=== PATIENT | female | born 1950 | race Caucasian/White ===

== ENCOUNTER 2017-07-01 19:23 | Inpatient (IN) | payer OTHER ==
[~2017-07-01] VITALS: Ht 160 cm; Wt 108.9 kg
[~2017-07-01 19:23] MED LIST: ALBUTEROL2.5 MG/32; ATIVAN0.5 MG PO; BACTRIM DS TAB1 EACH PO; CYMBALTA PO; CYMBALTA60 MG PO; FLAGYL500 MG PO; FLONASE16 GM; LEXAPRO 10 MG T10 MG; NEURONTIN 300M300 M2 PO; XANAX 0.25 MG0.25 MG; ZPAK PO
[2017-07-01 19:39] LABS: URINE BILIRUBIN NEGATIVE (Negative); URINE BLOOD TRACE (Negative); URINE CLARITY CLEAR; URINE COLOR YELLOW; URINE GLUCOSE-RANDOM* NEGATIVE (Negative); URINE KETONES NEGATIVE (Negative); URINE LEUKOCYTES-REFLEX NEGATIVE (Negative); URINE NITRITE-REFLEX NEGATIVE (Negative); URINE PROTEIN (DIPSTICK) TRACE (Negative); URINE SPECIFIC GRAVITY 1.015 (1.005-1.035); URINE UROBILINOGEN 0.2 E.U./dl (0.2-1.0)
[2017-07-01 19:55] VITALS: BP 142/87
[2017-07-01] MEDS ORDERED: METFORMIN HCL500 MG PO (20:02)
[2017-07-01] MEDS ORDERED: CO Q-10100 MG PO (20:02)
[2017-07-01] MEDS ORDERED: COLON HEALTH PO (20:03)
[2017-07-01] MEDS ORDERED: LIPITOR 20 MG T20 M1 PO (20:04)
[2017-07-01] MEDS ORDERED: CBD PO (20:05)
[2017-07-01] MEDS ORDERED: [UNRECOGNIZED DRUG - REMARK] PO (20:06)
[2017-07-01] MEDS ORDERED: OMEPRAZOLE40 MG PO (20:06)
[2017-07-01 20:16] LABS: ABSOLUTE NEUTROPHILS 6.8 thou/uL (1.4-8.2); BASOPHILS 0.8 % (0.0-2.0); EOSINOPHILS 1.4 % (0.0-3.0); HEMATOCRIT 39.3 % (37.0-47.0); HEMOGLOBIN 13.7 gm/dL (12.0-15.0); LYMPHOCYTES 19.6 % (24.0-44.0); MCH 29.6 pg (26.0-34.0); MCHC 34.9 g/dL (28.0-37.0); MCV 84.8 fL (80.0-100.0); MONOCYTES 8.5 % (1.0-8.0); PLATELET COUNT 329 thou/uL (150-400); POLYS 69.7 % (36.0-66.0); RBC 4.64 mil/uL (4.20-5.00); RDW 14.6 % (10.5-14.5); WBC 9.7 thou/uL (4.0-11.0)
[2017-07-01 20:24] LABS: CALCIUM 8.9 mg/dL (8.5-10.1); CREATININE 0.7 mg/dL (0.6-1.0); POTASSIUM 3.3 mmol/L (3.5-5.1)
[2017-07-01 20:30] LABS: ALBUMIN 3.5 g/dL (3.4-5.0); TOTAL BILIRUBIN 0.7 mg/dL (<0.1-1.0); TOTAL PROTEIN 7.7 g/dL (6.4-8.2)
[2017-07-02 00:20] VITALS: BP 127/63
[2017-07-02 00:44] VITALS: BP 137/70
[2017-07-02 01:00] VITALS: BP 131/61
[2017-07-02 06:37] LABS: CALCIUM 8.5 mg/dL (8.5-10.1); CREATININE 0.7 mg/dL (0.6-1.0); MAGNESIUM 2.7 mg/dL (1.8-2.4); POTASSIUM 3.3 mmol/L (3.5-5.1)
[2017-07-02 07:49] VITALS: BP 127/73
[2017-07-02 15:15] VITALS: BP 159/96
[2017-07-02 16:44] LABS: PROTIME 9.3 Seconds (9.3-11.4)
[2017-07-02 17:06] LABS: % SATURATION 21 % (20-39); IRON 49 ug/dL (50-170); TIBC 239 ug/dL (250-450)
[2017-07-02 20:00] VITALS: BP 149/77
[2017-07-03 01:06] LABS: IgG 635 mg/dL (700-1600)
[2017-07-03 04:00] VITALS: BP 141/70
[2017-07-03 07:56] VITALS: BP 134/76
[2017-07-03 11:47] LABS: ALBUMIN 3.2 g/dL (3.4-5.0); DIRECT BILIRUBIN 0.2 mg/dL (<0.1-0.3); TOTAL BILIRUBIN 0.4 mg/dL (<0.1-1.0); TOTAL PROTEIN 6.3 g/dL (6.4-8.2)
[2017-07-03 15:06] LABS: CERULOPLASMIN 30.7 mg/dL (19.0-39.0)
[2017-07-03 16:41] VITALS: BP 131/62
[2017-07-03 18:23] VITALS: BP 131/62
[2017-07-04 19:07] LABS: HAV IgM AB (ANTI-HAV IgM) Negative (Negative); HEPATITIS B SURFACE AG Negative (Negative); HEPATITIS C VIRUS AB <0.1 (0.0-0.9)
[2017-07-05 09:13] LABS: ANA INTERPRETATION Negative (Negative)
== END 2017-07-03 18:55 | disposition home or self-care (01) | DRG 445 ==
LOC: ER 19:23 → EROBS 21:32 → 4N 21:32 → ENTRNSPT 07-03 18:53 → 4N 07-03 18:55
PROVIDERS: Nurse Practitioner; Nurse Practitioner Acute Care; Physician Assistant
DX: K80.80 Other cholelithiasis without obstruction (principal); Z68.41 Body mass index [BMI] 40.0-44.9, adult; K59.09 Other constipation; F43.10 Post-traumatic stress disorder, unspecified; E78.00 Pure hypercholesterolemia, unspecified; E87.6 Hypokalemia; F41.9 Anxiety disorder, unspecified; F32.9 Major depressive disorder, single episode, unspecified; E11.9 Type 2 diabetes mellitus without complications; E66.9 Obesity, unspecified; Z79.899 Other long term (current) drug therapy; Z79.84 Long term (current) use of oral hypoglycemic drugs; Z85.3 Personal history of malignant neoplasm of breast; Z90.13 Acquired absence of bilateral breasts and nipples; Z90.710 Acquired absence of both cervix and uterus; Z87.891 Personal history of nicotine dependence; Z88.5 Allergy status to narcotic agent; Z88.8 Allergy status to other drugs, medicaments and biological substances
CPT/HCPCS: 10091

== ENCOUNTER 2017-11-28 15:58 | Inpatient (IN) | payer OTHER ==
[~2017-11-28] VITALS: Ht 162.6 cm; Wt 113.4 kg
--- NOTE | ~2017-11-28 | PATH ---
[facility] [place] [address] PATHOLOGY RPT PROCEDURE Name: PALMIRA ROCK Room #: 422-P [facility] IN M.R.#: [id number] Admission: 11/28/17 Date of : 54 Discharge: 12/03/17 Report #: [id number] Path Case #: [id number] [facility] Accession Number: [id number] . 01 Material submitted: . GALLBLADDER . 01 Clinical history: . Acute cholecystitis . 02 Diagnosis: Gallbladder "gallbladder cholecystectomy": - Moderate subacute and chronic cholecystitis with cholelithiasis. (SHA:[facility] 12/04/2017) QTP/12/04/2017 . 02 Electronically signed: . Pito Beltrán MD, Pathologist NPI- [id number] . 01 Gross description: . The specimen is received in formalin, labeled "Palmira Rock, gallbladder" and consists of a previously opened gallbladder measuring 8.0 cm in length and up to 3.0 cm in diameter. Present within the container is a single black calculus measuring 0.3 x 0.3 cm. The serosa is ireland-franks, smooth, and dusky. The mucosa is franks-brown with yellow highlights and a wall thickness averaging 0.2 cm. No masses or lesions are identified. Shagger sections are submitted in A1. (SDY; 12/03/2017) SYU/SYU . 02 Pathologist provided ICD-10: K80.10 . 02 CPT . 097152 Specimen Comment: A courtesy copy of this report has been sent to Specimen Comment: [phone], , . Specimen Comment: Report sent to ,DR CORDOVA / DR ROWAN Specimen Comment: A duplicate report has been generated due to demographic updates. Performed at: [address], [place] [id number] MD Bryon Oliveira MD Phone: [phone] Performed at: [address] [address] PATHOLOGY RPT PROCEDURE Name: PALMIRA ROCK Room #: 422-P DIS IN M.R.#: [id number] Admission: 11/28/17 Date of : 54 Discharge: 12/03/17 Report #: [id number] Path Case #: [id number] [address], [place], [place] [id number] MD Anahy Scott MD Phone: [phone]
--- NOTE | ~2017-11-28 | P ---
[facility] [place] [address] PROCEDURE REPORT Name: PALMIRA GAR Room #: 422-P [facility] IN M.R.#: [id number] Admission: 11/28/17 Attend Phys: Ceferino Ac MD Discharge: 12/03/17 Date of : 54 Report #: [id number] THIS REPORT FOR: //name// CC: Sanford Ewing DATE OF SERVICE: 11/30/2017 PROCEDURE PERFORMED: ERCP. HISTORY OF PRESENT ILLNESS: The patient is a 67-year-old female with abdominal pain, admitted on the . The pain is primarily midepigastric. She was noted to have elevated liver function test. Ultrasound of the abdomen showed gallbladder wall is abnormally thickened, there is intramural gallbladder wall edema suspicious for cholecystitis. An MRCP was then performed, which showed questionable 5 mm filling defect in the distal common bile duct suggestive of a possible common bile duct stone. No intra or extrahepatic biliary ductal dilation, mild prominence of gallbladder wall thickness. The patient's labs yesterday showed total bilirubin was 2.0, AST 315, ALT 466 and alkaline phosphatase 344. Plan is for ERCP. DESCRIPTION OF PROCEDURE: The risks and benefits of the procedure were explained to the patient. Those risks including but not limited to bleeding, perforation and the risk of sedation as well as the potential for posterior or superior pancreatitis. She understood these risks and gave informed consent. The procedure was performed under general anesthesia in Interventional Radiology suite. The patient had already received IV antibiotics earlier today. She was given 50 mg indomethacin rectal suppository prior to the procedure as well. Next, using a standard Olympus side-viewing ERCP scope, the scope was placed in the patient's mouth and advanced under direct vision through the esophagus, stomach and into the second portion of the duodenum. The major papilla was identified, which was normal, however, has right on the edge of a diverticulum. Next, using a Jarett-Cook 0.025 dome-tipped sphincterotome catheter, the common bile duct was attempted to be cannulated. I tried multiple attempts without success. The pancreatic duct was cannulated several times, which was normal in appearance. At this point, I tried a 0.021 catheter as well. Again, multiple attempts were made. We tried multiple different angles and repositioning the patient. Despite this, I think due to the diverticulum, it made it difficult to cannulate the common bile duct, we were not successful at this point. The catheter and the scope was then withdrawn and the procedure terminated. The patient tolerated the procedure well. IMPRESSION: 1. Unsuccessful cannulation of the common bile duct. [address] [address] PROCEDURE REPORT Name: CONGPALMIRA SUE Room #: 422-P [facility] IN M.R.#: [id number] Admission: 11/28/17 Attend Phys: Ceferino Ac MD Discharge: 12/03/17 Date of : 54 Report #: [id number] 2. Pancreatic duct was normal. 3. Duodenal diverticulum. RECOMMENDATIONS: 1. Observe the patient post-procedure. 2. The patient is scheduled for laparoscopic cholecystectomy tomorrow. We will await intraoperative cholangiogram results at that time. Thank you for allowing me to participate in her care. <ELECTRONICALLY SIGNED> By: Suhail Galeana MD 12/05/17 0956 1717 0405 Suhail Galeana MD /nt
--- NOTE | ~2017-11-28 | EKG ---
[address] [address] ELECTROCARDIOGRAM REPORT Name: PALMIRA GAR Room #: 422-P ADM IN M.R.#: [id number] Admission: 11/28/17 Attend Phys: Ceferino Ac MD Discharge: Date of : 54 Report #: [id number] THIS REPORT FOR: //name// 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 Painting: : 1950 Requested By: Kamryn Cheek Order Number: [id number] MD: Bertin Henley Measurements Intervals [place] Rate: 82 P: 51 AK: 166 QRS: 29 QRSD: 108 T: 39 QT: 386 QTc: 451 Interpretive Statements Sinus rhythm Nonspecific ST segment abnormality Compared to ECG 05/07/2013 10:39:04 No significant change was found Electronically Signed On 11-29-2017 8:13:48 CDT by Bertin Henley [email or web address] <ELECTRONICALLY SIGNED> By: Bertin Henley MD, [facility] 11/29/17 0813 1659 1659 Bertin Henley MD, [facility] /EPI
[~2017-11-28 15:58] MED LIST changes: +CBD PO; +CO Q-10100 MG PO; +COLON HEALTH PO; +LIPITOR 20 MG T20 M1 PO; +METFORMIN HCL500 MG PO; +OMEPRAZOLE40 MG PO; +[UNRECOGNIZED DRUG - REMARK] PO
[2017-11-28 16:14] VITALS: BP 163/62
[2017-11-28] MEDS ORDERED: NEURONTIN600 MG PO (16:24)
[2017-11-28 16:57] LABS: ABSOLUTE NEUTROPHILS 6.7 thou/uL (1.4-8.2); BASOPHILS 0.4 % (0.0-2.0); EOSINOPHILS 0.5 % (0.0-3.0); HEMATOCRIT 38.5 % (37.0-47.0); HEMOGLOBIN 13.3 gm/dL (12.0-15.0); LYMPHOCYTES 11.3 % (24.0-44.0); MCH 29.1 pg (26.0-34.0); MCHC 34.4 g/dL (28.0-37.0); MCV 84.6 fL (80.0-100.0); MONOCYTES 8.3 % (1.0-8.0); PLATELET COUNT 289 thou/uL (150-400); POLYS 79.5 % (36.0-66.0); RBC 4.55 mil/uL (4.20-5.00); RDW 14.2 % (10.5-14.5); WBC 8.4 thou/uL (4.0-11.0)
[2017-11-28 16:59] LABS: URINE BILIRUBIN NEGATIVE (Negative); URINE BLOOD TRACE (Negative); URINE CLARITY CLEAR; URINE COLOR YELLOW; URINE GLUCOSE-RANDOM* NEGATIVE (Negative); URINE KETONES NEGATIVE (Negative); URINE LEUKOCYTES NEGATIVE (Negative); URINE NITRITE NEGATIVE (Negative); URINE PROTEIN (DIPSTICK) NEGATIVE (Negative); URINE SPECIFIC GRAVITY 1.015 (1.005-1.035)
[2017-11-28 17:01] LABS: ANION GAP 11 mmol/L (7-16); BUN 15 mg/dL (7-18); CALCIUM 8.9 mg/dL (8.5-10.1); CHLORIDE 101 mmol/L (98-107); CO2 25 mmol/L (21-32); CREATININE 0.8 mg/dL (0.6-1.0); GLUCOSE 173 mg/dL (74-106); POTASSIUM 3.9 mmol/L (3.5-5.1); SODIUM 137 mmol/L (136-145)
[2017-11-28 17:13] LABS: ALBUMIN 3.2 g/dL (3.4-5.0); APTT 26.4 Seconds (24.5-32.8); LIPASE 106 U/L (73-393); SGOT 720 U/L (15-37); SGPT 515 U/L (30-65); TOTAL BILIRUBIN 1.4 mg/dL (<0.1-1.0); TOTAL PROTEIN 7.5 g/dL (6.4-8.2); TROPONIN-I <0.06 ng/mL (<0.06)
[2017-11-28 18:24] VITALS: BP 161/85
[2017-11-28 18:57] LABS: ALBUMIN 3.4 g/dL (3.4-5.0); TOTAL PROTEIN 6.9 g/dL (6.4-8.2)
[2017-11-28 19:00] VITALS: BP 134/69
[2017-11-28 19:22] LABS: TSH 0.279 uIU/mL (0.358-3.740)
[2017-11-28 19:56] VITALS: BP 134/69
[2017-11-29 03:45] VITALS: BP 144/67
[2017-11-29 05:16] LABS: HEMATOCRIT 38.4 % (37.0-47.0); MCH 28.8 pg (26.0-34.0); MCHC 33.8 g/dL (28.0-37.0); MCV 85.1 fL (80.0-100.0); RBC 4.52 mil/uL (4.20-5.00); RDW 14.2 % (10.5-14.5); WBC 5.3 thou/uL (4.0-11.0)
[2017-11-29 05:27] LABS: DIRECT BILIRUBIN 1.4 mg/dL (<0.1-0.3); TOTAL BILIRUBIN 2.1 mg/dL (<0.1-1.0); TOTAL PROTEIN 6.9 g/dL (6.4-8.2)
[2017-11-29 07:16] VITALS: BP 151/79
[2017-11-29 13:20] VITALS: BP 146/66
[2017-11-29 16:12] VITALS: BP 152/93
[2017-11-29 18:50] LABS: CALCIUM 8.5 mg/dL (8.5-10.1); CREATININE 0.9 mg/dL (0.6-1.0); POTASSIUM 3.6 mmol/L (3.5-5.1); TOTAL PROTEIN 6.9 g/dL (6.4-8.2)
[2017-11-29 19:35] VITALS: BP 142/69
[2017-11-30 02:07] VITALS: BP 156/96
[2017-11-30 04:22] VITALS: BP 142/63
[2017-11-30 06:00] LABS: HEMATOCRIT 35.7 % (37.0-47.0); HEMOGLOBIN 12.1 gm/dL (12.0-15.0); MCH 29.1 pg (26.0-34.0); MCHC 33.9 g/dL (28.0-37.0); MCV 85.6 fL (80.0-100.0); RBC 4.17 mil/uL (4.20-5.00); RDW 14.5 % (10.5-14.5); WBC 6.2 thou/uL (4.0-11.0)
[2017-11-30 07:52] VITALS: BP 152/71
[2017-11-30 18:58] LABS: CALCIUM 8.3 mg/dL (8.5-10.1); CREATININE 0.7 mg/dL (0.6-1.0); POTASSIUM 3.4 mmol/L (3.5-5.1); TOTAL BILIRUBIN 1.9 mg/dL (<0.1-1.0); TOTAL PROTEIN 7.3 g/dL (6.4-8.2)
[2017-11-30 19:54] VITALS: BP 151/82
[2017-12-01 05:53] LABS: HEMATOCRIT 38.7 % (37.0-47.0); HEMOGLOBIN 13.3 gm/dL (12.0-15.0); MCH 29.5 pg (26.0-34.0); MCHC 34.5 g/dL (28.0-37.0); MCV 85.6 fL (80.0-100.0); RBC 4.52 mil/uL (4.20-5.00); RDW 14.3 % (10.5-14.5); WBC 9.6 thou/uL (4.0-11.0)
[2017-12-01 09:11] VITALS: BP 157/71
[2017-12-01 12:54] LABS: DIRECT BILIRUBIN 0.5 mg/dL (<0.1-0.3); TOTAL BILIRUBIN 0.8 mg/dL (<0.1-1.0); TOTAL PROTEIN 7.1 g/dL (6.4-8.2)
[2017-12-01 17:41] VITALS: BP 157/93
[2017-12-01 19:50] VITALS: BP 155/86
[2017-12-02 04:40] VITALS: BP 169/61
[2017-12-02 05:15] LABS: HEMATOCRIT 38.9 % (37.0-47.0); MCH 28.3 pg (26.0-34.0); MCHC 33.3 g/dL (28.0-37.0); RBC 4.58 mil/uL (4.20-5.00); RDW 14.5 % (10.5-14.5); WBC 15.5 thou/uL (4.0-11.0)
[2017-12-02 05:38] LABS: ALBUMIN 2.9 g/dL (3.4-5.0); DIRECT BILIRUBIN 0.2 mg/dL (<0.1-0.3); MAGNESIUM 1.8 mg/dL (1.8-2.4); TOTAL BILIRUBIN 0.8 mg/dL (<0.1-1.0); TOTAL PROTEIN 6.9 g/dL (6.4-8.2)
[2017-12-02 19:59] VITALS: BP 108/55
[2017-12-03 04:09] VITALS: BP 146/81
[2017-12-03 07:23] VITALS: BP 127/66
[2017-12-03 14:26] VITALS: BP 127/66
== END 2017-12-03 16:00 | disposition home or self-care (01) | DRG 417 ==
LOC: ER 15:58 → 4E 18:22 → EROBS 18:22 → 4E 19:36 → ENTRNSPT 12-03 15:49 → EDTRNSPTSTS 12-03 15:52 → 4E 12-03 16:00
PROVIDERS: Internal Medicine; Physician Assistant; Surgery
DX: K80.01 Calculus of gallbladder with acute cholecystitis with obstruction (principal); E43 Unspecified severe protein-calorie malnutrition; E78.00 Pure hypercholesterolemia, unspecified; R74.0 Nonspecific elevation of levels of transaminase and lactic acid dehydrogenase [LDH]; K57.10 Diverticulosis of small intestine without perforation or abscess without bleeding; E11.65 Type 2 diabetes mellitus with hyperglycemia; E78.5 Hyperlipidemia, unspecified; F32.9 Major depressive disorder, single episode, unspecified; K59.00 Constipation, unspecified; K21.9 Gastro-esophageal reflux disease without esophagitis; Z79.899 Other long term (current) drug therapy; Z90.13 Acquired absence of bilateral breasts and nipples; Z90.710 Acquired absence of both cervix and uterus; Z85.3 Personal history of malignant neoplasm of breast; Z88.6 Allergy status to analgesic agent; Z88.8 Allergy status to other drugs, medicaments and biological substances; Z83.6 Family history of other diseases of the respiratory system; Z83.79 Family history of other diseases of the digestive system; Z87.891 Personal history of nicotine dependence
CPT/HCPCS: 10183; 50101; 50249; 50411; 50555; 50558; 50962; 51489; 51975; 52265; 53307; 53310; 54022; 54118; 55245; 55317; 56462; 56525; 56526; 62110; 62900; 65130; 70005

== ENCOUNTER 2017-12-05 02:28 | Inpatient (IN) | payer OTHER ==
[~2017-12-05] VITALS: Ht 162.6 cm; Wt 121.3 kg
[~2017-12-05 02:28] MED LIST changes: +NEURONTIN600 MG PO
[2017-12-05 02:39] VITALS: BP 115/65
[2017-12-05 03:11] LABS: HEMATOCRIT 34.3 % (37.0-47.0); HEMOGLOBIN 11.4 gm/dL (12.0-15.0); MCH 28.2 pg (26.0-34.0); MCHC 33.3 g/dL (28.0-37.0); MCV 84.7 fL (80.0-100.0); PLATELET COUNT 351 thou/uL (150-400); RBC 4.05 mil/uL (4.20-5.00); RDW 14.7 % (10.5-14.5); WBC 19.2 thou/uL (4.0-11.0)
[2017-12-05 03:18] LABS: CALCIUM 8.2 mg/dL (8.5-10.1); CREATININE 0.8 mg/dL (0.6-1.0)
[2017-12-05 03:21] LABS: POTASSIUM 2.9 mmol/L (3.5-5.1)
[2017-12-05 03:24] LABS: ALBUMIN 2.2 g/dL (3.4-5.0); TOTAL BILIRUBIN 0.7 mg/dL (<0.1-1.0); TOTAL PROTEIN 6.7 g/dL (6.4-8.2)
[2017-12-05 03:32] LABS: ATYPICAL LYMPHS 1 %
[2017-12-05 04:26] LABS: URINE BILIRUBIN 1+ (Negative); URINE BLOOD TRACE (Negative); URINE CLARITY CLEAR; URINE COLOR YELLOW; URINE GLUCOSE-RANDOM* TRACE (Negative); URINE KETONES TRACE (Negative); URINE LEUKOCYTES-REFLEX NEGATIVE (Negative); URINE NITRITE-REFLEX NEGATIVE (Negative); URINE PROTEIN (DIPSTICK) 1+ (Negative); URINE SPECIFIC GRAVITY 1.025 (1.005-1.035)
[2017-12-05 04:30] LABS: ICTOTEST (BILI CONFIRMATORY) Positive (Negative)
[2017-12-05 04:42] LABS: HYALINE CASTS 0-3 Few /LPF (None Seen); MUCUS 0-3 Light strn/LPF (None Seen); SQUAMOUS 4-10 Moderate /LPF (0-3)
[2017-12-05 04:43] LABS: BACTERIA-REFLEX 1-9 Few /HPF (None Seen); CRYSTALS None Seen /LPF (None Seen); URINE RBC 0-2 Rare /HPF (0-2); URINE WBC-REFLEX 0-5 Rare /HPF (0-5)
[2017-12-05 06:04] VITALS: BP 139/70
[2017-12-05 06:29] VITALS: BP 129/50
[2017-12-05 07:46] VITALS: BP 147/74
[2017-12-05 11:53] LABS: CALCIUM 7.7 mg/dL (8.5-10.1); CREATININE 0.7 mg/dL (0.6-1.0)
[2017-12-05 16:25] VITALS: BP 134/62
[2017-12-05 19:55] VITALS: BP 133/59
[2017-12-06 04:36] VITALS: BP 148/64
[2017-12-06 07:35] LABS: ABSOLUTE NEUTROPHILS 14.2 thou/uL (1.4-8.2); BASOPHILS 0.2 % (0.0-2.0); EOSINOPHILS 1.4 % (0.0-3.0); HEMATOCRIT 30.9 % (37.0-47.0); HEMOGLOBIN 10.1 gm/dL (12.0-15.0); LYMPHOCYTES 10.5 % (24.0-44.0); MCH 28.1 pg (26.0-34.0); MCHC 32.6 g/dL (28.0-37.0); MCV 86.4 fL (80.0-100.0); MONOCYTES 9.9 % (1.0-8.0); PLATELET COUNT 344 thou/uL (150-400); RBC 3.58 mil/uL (4.20-5.00); RDW 14.7 % (10.5-14.5); WBC 18.2 thou/uL (4.0-11.0)
[2017-12-06 07:45] LABS: CALCIUM 7.6 mg/dL (8.5-10.1); CREATININE 0.6 mg/dL (0.6-1.0); MAGNESIUM 1.8 mg/dL (1.8-2.4); POTASSIUM 3.1 mmol/L (3.5-5.1)
[2017-12-06 07:53] LABS: DIRECT BILIRUBIN 0.4 mg/dL (<0.1-0.3); TOTAL BILIRUBIN 0.7 mg/dL (<0.1-1.0)
[2017-12-06 16:34] LABS: GLYCOHEMOGLOBIN (HGB A1C) 6.3 % (4.8-5.6)
[2017-12-06 16:44] VITALS: BP 132/48
[2017-12-06 19:26] VITALS: BP 144/44
[2017-12-07 04:20] VITALS: BP 124/59
[2017-12-07 06:16] LABS: HEMATOCRIT 31.2 % (37.0-47.0); HEMOGLOBIN 10.6 gm/dL (12.0-15.0); MCH 28.9 pg (26.0-34.0); MCHC 33.8 g/dL (28.0-37.0); MCV 85.5 fL (80.0-100.0); PLATELET COUNT 331 thou/uL (150-400); RBC 3.65 mil/uL (4.20-5.00); RDW 15.1 % (10.5-14.5); WBC 16.4 thou/uL (4.0-11.0)
[2017-12-07 06:36] LABS: CALCIUM 7.7 mg/dL (8.5-10.1); CREATININE 0.6 mg/dL (0.6-1.0)
[2017-12-07 06:46] LABS: ALBUMIN 1.8 g/dL (3.4-5.0); DIRECT BILIRUBIN 0.2 mg/dL (<0.1-0.3); TOTAL BILIRUBIN 0.6 mg/dL (<0.1-1.0); TOTAL PROTEIN 5.9 g/dL (6.4-8.2)
[2017-12-07 07:22] LABS: POTASSIUM 2.8 mmol/L (3.5-5.1)
[2017-12-07 07:52] VITALS: BP 155/56
[2017-12-07 08:17] LABS: ABSOLUTE NEUTROPHILS 13.1 thou/uL (1.4-8.2); PLATELET ESTIMATE NORMAL
[2017-12-07 20:30] VITALS: BP 125/49
[2017-12-08 04:30] VITALS: BP 146/56
[2017-12-08 08:24] VITALS: BP 128/59
[2017-12-08 15:18] VITALS: BP 128/59
== END 2017-12-08 18:45 | disposition home or self-care (01) | DRG 438 ==
LOC: ER 02:28 → 4E 05:51 → EROBS 05:51 → 4E 06:29
PROVIDERS: Emergency Medicine; Hospitalist; Internal Medicine Gastroenterology; Nurse Practitioner
DX: K85.80 Other acute pancreatitis without necrosis or infection (principal); E43 Unspecified severe protein-calorie malnutrition; Z68.42 Body mass index [BMI] 45.0-49.9, adult; E78.00 Pure hypercholesterolemia, unspecified; E11.9 Type 2 diabetes mellitus without complications; E87.6 Hypokalemia; E78.5 Hyperlipidemia, unspecified; E66.9 Obesity, unspecified; F41.9 Anxiety disorder, unspecified; F43.10 Post-traumatic stress disorder, unspecified; K21.9 Gastro-esophageal reflux disease without esophagitis; D72.829 Elevated white blood cell count, unspecified; D64.9 Anemia, unspecified; Z90.13 Acquired absence of bilateral breasts and nipples; Z85.3 Personal history of malignant neoplasm of breast; Z87.01 Personal history of pneumonia (recurrent); Z88.8 Allergy status to other drugs, medicaments and biological substances; Z88.6 Allergy status to analgesic agent; Z88.1 Allergy status to other antibiotic agents; Z91.041 Radiographic dye allergy status; Z83.6 Family history of other diseases of the respiratory system; Z90.49 Acquired absence of other specified parts of digestive tract; Z83.79 Family history of other diseases of the digestive system; Z82.49 Family history of ischemic heart disease and other diseases of the circulatory system; Z87.891 Personal history of nicotine dependence; Z90.710 Acquired absence of both cervix and uterus; Z23 Encounter for immunization; Z79.899 Other long term (current) drug therapy
CPT/HCPCS: 10783

== ENCOUNTER 2018-03-10 10:36 | Emergency (ER) | payer OTHER ==
[~2018-03-10] VITALS: Ht 162.6 cm; Wt 106.6 kg
[2018-03-10 11:13] LABS: ABSOLUTE NEUTROPHILS 9.3 thou/uL (1.4-8.2); BASOPHILS 0.5 % (0.0-2.0); EOSINOPHILS 0.3 % (0.0-3.0); HEMOGLOBIN 12.2 gm/dL (12.0-15.0); LYMPHOCYTES 13.4 % (24.0-44.0); MCH 28.1 pg (26.0-34.0); MCV 84.9 fL (80.0-100.0); MONOCYTES 5.6 % (1.0-8.0); PLATELET COUNT 281 thou/uL (150-400); POLYS 80.2 % (36.0-66.0); RBC 4.36 mil/uL (4.20-5.00); WBC 11.6 thou/uL (4.0-11.0)
[2018-03-10 11:22] LABS: ANION GAP 9 mmol/L (7-16); BUN 9 mg/dL (7-18); CALCIUM 8.7 mg/dL (8.5-10.1); CHLORIDE 98 mmol/L (98-107); CO2 26 mmol/L (21-32); CREATININE 0.8 mg/dL (0.6-1.0); GLUCOSE 165 mg/dL (74-106); POTASSIUM 3.8 mmol/L (3.5-5.1); SODIUM 133 mmol/L (136-145)
[2018-03-10 11:30] LABS: TROPONIN-I <0.06 ng/mL (<0.06)
[2018-03-10] MEDS ORDERED: ALBUTEROL2.5 MG/31 INH (13:58)
[2018-03-10] MEDS ORDERED: DOXYCYCLINE 10100 MG PO (13:58)
[2018-03-10 15:10] VITALS: BP 144/74
--- NOTE | 2018-03-11 08:47 | EKG ---
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 : 1950 Requested By: Lola Gaston Order Number: [id number] MD: Bertin Henley Measurements Intervals [place] Rate: 96 P: 47 DC: 128 QRS: 14 QRSD: 99 T: 36 QT: 377 QTc: 477 Interpretive Statements Sinus rhythm Atrial premature complex Nonspecific ST segment abnormality Compared to ECG 11/28/2017 16:59:09 Atrial premature complex(es) now present Electronically Signed On 03-11-2018 8:47:40 SCRUBBER SYSTEM ATTENDANT by Bertin Henley [email or web address] <ELECTRONICALLY SIGNED> By: Bertin Henley MD, [facility] 03/11/18 0847 1058 1058 Bertin Henley MD, [facility] /EPI
== END 2018-03-10 15:11 | disposition home or self-care (01) ==
LOC: ER 10:36
PROVIDERS: Nurse Practitioner Family
DX: J18.8 Other pneumonia, unspecified organism (principal); M79.7 Fibromyalgia; E78.00 Pure hypercholesterolemia, unspecified; E11.9 Type 2 diabetes mellitus without complications; Z91.041 Radiographic dye allergy status; Z88.6 Allergy status to analgesic agent; Z88.5 Allergy status to narcotic agent; Z88.8 Allergy status to other drugs, medicaments and biological substances; Z90.49 Acquired absence of other specified parts of digestive tract; Z85.3 Personal history of malignant neoplasm of breast; Z90.710 Acquired absence of both cervix and uterus

== ENCOUNTER 2019-09-23 17:52 | Emergency (ER) | payer MEDICARE ==
[~2019-09-23] VITALS: Ht 162.6 cm; Wt 104.3 kg
[~2019-09-23 17:52] MED LIST changes: +ALBUTEROL2.5 MG/31 INH; +DOXYCYCLINE 10100 MG PO
[2019-09-23 19:18] LABS: ABSOLUTE NEUTROPHILS 5.5 thou/uL (1.4-8.2); BASOPHILS 0.8 % (0.0-2.0); EOSINOPHILS 0.6 % (0.0-3.0); HEMATOCRIT 38.7 % (37.0-47.0); HEMOGLOBIN 13.1 gm/dL (12.0-15.0); LYMPHOCYTES 12.1 % (24.0-44.0); MCH 29.1 pg (26.0-34.0); MCHC 33.8 g/dL (28.0-37.0); MONOCYTES 9.1 % (1.0-8.0); PLATELET COUNT 298 thou/uL (150-400); POLYS 77.4 % (36.0-66.0); RDW 14.2 % (10.5-14.5); WBC 7.2 thou/uL (4.0-11.0)
[2019-09-23 19:27] LABS: ALBUMIN 3.6 g/dL (3.4-5.0); CALCIUM 8.5 mg/dL (8.5-10.1); CREATININE 0.8 mg/dL (0.6-1.0); DIRECT BILIRUBIN 0.1 mg/dL (<0.1-0.2); TOTAL BILIRUBIN 0.5 mg/dL (0.2-1.0); TOTAL PROTEIN 7.4 g/dL (6.4-8.2)
[2019-09-23 19:31] LABS: POTASSIUM 2.7 mmol/L (3.5-5.1)
[2019-09-23 20:32] LABS: URINE BILIRUBIN NEGATIVE (Negative); URINE BLOOD TRACE (Negative); URINE CLARITY CLEAR; URINE COLOR YELLOW; URINE GLUCOSE-RANDOM* NEGATIVE (Negative); URINE KETONES TRACE (Negative); URINE LEUKOCYTES-REFLEX NEGATIVE (Negative); URINE NITRITE-REFLEX NEGATIVE (Negative); URINE PROTEIN (DIPSTICK) TRACE (Negative)
[2019-09-24] MEDS ORDERED: ZOFRAN ODT4 MG PO (00:30)
[2019-09-24 00:35] VITALS: BP 138/87
[2019-09-25] MEDS ORDERED: VALACYCLOVIR1000 MG PO (08:22)
== END 2019-09-24 00:40 | disposition home or self-care (01) ==
LOC: ER 17:52
PROVIDERS: Emergency Medicine
DX: R11.10 Vomiting, unspecified (principal); R51 Headache; E87.6 Hypokalemia; E11.9 Type 2 diabetes mellitus without complications; E78.00 Pure hypercholesterolemia, unspecified; Z20.828 Contact with and (suspected) exposure to other viral communicable diseases; Z90.710 Acquired absence of both cervix and uterus; Z79.899 Other long term (current) drug therapy; Z87.891 Personal history of nicotine dependence; Z88.1 Allergy status to other antibiotic agents; Z88.5 Allergy status to narcotic agent; Z88.8 Allergy status to other drugs, medicaments and biological substances; Z91.041 Radiographic dye allergy status

== ENCOUNTER 2019-09-25 06:58 | Emergency (ER) | payer MEDICARE ==
[~2019-09-25] VITALS: Ht 162.6 cm; Wt 106.6 kg
[~2019-09-25 06:58] MED LIST changes: +ZOFRAN ODT4 MG PO
[2019-09-25 07:42] LABS: ABSOLUTE NEUTROPHILS 5.4 thou/uL (1.4-8.2); BASOPHILS 0.7 % (0.0-2.0); EOSINOPHILS 1.5 % (0.0-3.0); HEMOGLOBIN 13.3 gm/dL (12.0-15.0); LYMPHOCYTES 21.2 % (24.0-44.0); MCH 29.2 pg (26.0-34.0); MCV 85.8 fL (80.0-100.0); MONOCYTES 8.5 % (1.0-8.0); PLATELET COUNT 301 thou/uL (150-400); POLYS 68.1 % (36.0-66.0); RBC 4.54 mil/uL (4.20-5.00); RDW 14.2 % (10.5-14.5)
[2019-09-25 07:51] LABS: CALCIUM 8.7 mg/dL (8.5-10.1); CREATININE 0.8 mg/dL (0.6-1.0); MAGNESIUM 1.8 mg/dL (1.8-2.4)
[2019-09-25 07:52] LABS: POTASSIUM 2.8 mmol/L (3.5-5.1)
[2019-09-25] MEDS ORDERED: VALACYCLOVIR1000 MG PO (08:22)
[2019-09-25 08:33] VITALS: BP 147/73
== END 2019-09-25 08:34 | disposition home or self-care (01) ==
LOC: ER 06:58
PROVIDERS: Emergency Medicine
DX: B02.9 Zoster without complications (principal); H92.02 Otalgia, left ear; R11.2 Nausea with vomiting, unspecified; E66.9 Obesity, unspecified; R51 Headache; M79.7 Fibromyalgia; E78.00 Pure hypercholesterolemia, unspecified; E11.9 Type 2 diabetes mellitus without complications; Z90.711 Acquired absence of uterus with remaining cervical stump; Z68.41 Body mass index [BMI] 40.0-44.9, adult; Z90.49 Acquired absence of other specified parts of digestive tract; Z79.899 Other long term (current) drug therapy; Z88.1 Allergy status to other antibiotic agents; Z88.8 Allergy status to other drugs, medicaments and biological substances; Z88.5 Allergy status to narcotic agent; Z91.041 Radiographic dye allergy status

== ENCOUNTER 2019-09-27 19:34 | Inpatient (IN) | payer MEDICARE ==
[~2019-09-27] VITALS: Ht 162.6 cm; Wt 108.9 kg
[~2019-09-27 19:34] MED LIST changes: +VALACYCLOVIR1000 MG PO
[2019-09-27 19:36] VITALS: BP 126/97
[2019-09-27 20:02] LABS: ABSOLUTE NEUTROPHILS 6.4 thou/uL (1.4-8.2); BASOPHILS 0.2 % (0.0-2.0); EOSINOPHILS 1.3 % (0.0-3.0); HEMATOCRIT 42.1 % (37.0-47.0); HEMOGLOBIN 14.5 gm/dL (12.0-15.0); LYMPHOCYTES 26.3 % (24.0-44.0); MCH 29.4 pg (26.0-34.0); MCHC 34.3 g/dL (28.0-37.0); MCV 85.7 fL (80.0-100.0); PLATELET COUNT 372 thou/uL (150-400); POLYS 64.2 % (36.0-66.0); RBC 4.92 mil/uL (4.20-5.00); RDW 14.4 % (10.5-14.5); WBC 9.9 thou/uL (4.0-11.0)
[2019-09-27 20:16] LABS: ALBUMIN 3.6 g/dL (3.4-5.0); ANION GAP 15 mmol/L (7-16); BUN 17 mg/dL (7-18); CALCIUM 9.2 mg/dL (8.5-10.1); CHLORIDE 99 mmol/L (98-107); CO2 25 mmol/L (21-32); GLUCOSE 185 mg/dL (74-106); LIPASE 39 U/L (73-393); SGOT 21 U/L (15-37); SGPT 26 U/L (30-65); SODIUM 139 mmol/L (136-145); TOTAL BILIRUBIN 0.5 mg/dL (0.2-1.0); TOTAL PROTEIN 7.8 g/dL (6.4-8.2); TROPONIN-I <0.06 ng/mL (<0.06)
[2019-09-27 20:18] LABS: POTASSIUM 2.6 mmol/L (3.5-5.1)
[2019-09-27 21:42] VITALS: BP 160/86
[2019-09-27 22:06] LABS: CHOLESTEROL 126 mg/dL (<200); HDL CHOLESTEROL 49 mg/dL (>40); LDL CHOLESTEROL 56 mg/dL (<100); SERUM ASSESSMENT Clear; TC:HDL 2.6 Ratio (Not establshd); TRIGLYCERIDE 108 mg/dL (<150); VLDL 22 mg/dL (<40)
[2019-09-27 22:45] VITALS: BP 160/86
[2019-09-27 22:55] VITALS: BP 166/94
[2019-09-27] MEDS ORDERED: NEURONTIN300 MG PO (23:49)
[2019-09-28] VITALS (8 sets, daily range): BP systolic 143–166; BP diastolic 73–100
--- NOTE | 2019-09-28 02:47 | NUR ---
0409 ADMITTED PATIENT FROM ER PER CART. WALKED TO ROOM WITH STANDBY ASSIST. ORIENTED TO ROOM AND FLOOR POLICIES. ADMISSION STARTED AND COMPLETED. EROS SANCHEZP HERE. TELEMETRY SHOWS SR WITH PVC. REMAINS ON CARDIZEM GTT. 0300 ZOFRAN GIVEN AT 0200 FOR COMPLAINTS OF NAUSEA. NOW WITH NOTED RELIEF. WORKING ON GOALS AND PLAN OF CARE FOR NOC. NPO FOR POSSIBLE INTERVENTION PER CARDIOLOGY IN AM. CONTINUE TO SULEMAN SILVA.
[2019-09-28 03:52] LABS: ANION GAP 10 mmol/L (7-16); BUN 15 mg/dL (7-18); CALCIUM 8.6 mg/dL (8.5-10.1); CHLORIDE 102 mmol/L (98-107); CO2 26 mmol/L (21-32); CREATININE 0.9 mg/dL (0.6-1.0); GLUCOSE 129 mg/dL (74-106); SODIUM 138 mmol/L (136-145)
[2019-09-28 03:53] LABS: POTASSIUM 3.7 mmol/L (3.5-5.1)
[2019-09-28 04:01] LABS: TROPONIN-I <0.06 ng/mL (<0.06)
[2019-09-28 04:52] LABS: URINE BILIRUBIN 1+ (Negative); URINE BLOOD 3+ (Negative); URINE CLARITY CLOUDY; URINE GLUCOSE-RANDOM* NEGATIVE (Negative); URINE KETONES TRACE (Negative); URINE LEUKOCYTES NEGATIVE (Negative); URINE NITRITE NEGATIVE (Negative); URINE PROTEIN (DIPSTICK) 2+ (Negative); URINE SPECIFIC GRAVITY 1.025 (1.005-1.035); URINE UROBILINOGEN 0.2 E.U./dl (0.2-1.0)
[2019-09-28 05:18] LABS: CASTS None Seen /LPF (None Seen); MUCUS 0-3 Light strn/LPF (None Seen); SQUAMOUS 0-3 Few /LPF (0-3)
[2019-09-28 05:19] LABS: CRYSTALS None Seen /LPF (None Seen); URINE RBC >20 Many /HPF (0-2); URINE WBC >25 Many /HPF (0-5)
[2019-09-28 05:20] LABS: URINE COLOR RED
[2019-09-28 05:21] LABS: ICTOTEST (BILI CONFIRMATORY) Positive (Negative)
--- NOTE | 2019-09-28 05:44 | NUR ---
UA POSITIVE. MESSAGE LEFT FOR EROS BOLIVAR. AWAIT ORDERS.
--- NOTE | 2019-09-28 10:25 | EKG ---
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: SYDNIE : 1950 Requested By: Charly Bird Order Number: [id number] MD: Bertin Henley Measurements Intervals [place] Rate: 173 P: MT: QRS: 9 QRSD: 93 T: 236 QT: 256 QTc: 435 Interpretive Statements Atrial flutter with rapid V-rate Repolarization abnormality, prob rate related Compared to ECG 03/10/2018 10:58:22 Sinus rhythm no longer present Electronically Signed On 09-28-2019 10:25:42 CDT by Bertin Henley [email or web address] <ELECTRONICALLY SIGNED> By: Bertin Henley MD, [facility] 09/28/19 1025 41 41 Bertin Henley MD, [facility] /EPI
--- NOTE | 2019-09-28 10:26 | EKG ---
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
--- NOTE | 2019-09-28 10:32 | EKG ---
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 Technician: SHARIFA : 1950 Requested By: Brandy Blank Order Number: [id number] MD: Bertin Henley Measurements Intervals [place] Rate: 71 P: 63 FL: 158 QRS: 19 QRSD: 107 T: 28 QT: 485 QTc: 528 Interpretive Statements Sinus rhythm Borderline T wave abnormalities Prolonged QT interval Compared to ECG 09/27/2019 19:42:03 T-wave abnormality now present Prolonged QT interval now present Electronically Signed On 09-28-2019 10:32:05 CDT by Bertin Henley [email or web address] <ELECTRONICALLY SIGNED> By: Bertin Henley MD, [facility] 09/28/19 1032 0746 0746 Bertin Henley MD, [facility] /EPI
[2019-09-28 11:14] LABS: HEMATOCRIT 38.9 % (37.0-47.0); HEMOGLOBIN 13.2 gm/dL (12.0-15.0); MCH 29.4 pg (26.0-34.0); MCV 86.6 fL (80.0-100.0); RBC 4.49 mil/uL (4.20-5.00); RDW 14.7 % (10.5-14.5); WBC 15.7 thou/uL (4.0-11.0)
--- NOTE | 2019-09-28 18:41 | NUR ---
AAOX4. PALSY R/T SHINGLES NOTED. MULTIPLE COMPLAINTS. ANOTHER UA ORDERED BUT ONE WAS COLLECTED AND RESULTED AT 0400. BLOODY URINE EARLY IN THE A.M. CBI ORDERED. HAS VOIDED THREE TIMES NOW CLEAR, LIGHT YELLOW, NO SIGN OF BLEEDING. CBI REFUSED A RESULT. SR PER TELE. WILL CONTINUE TO MONITOR.
[2019-09-28 23:06] LABS: THYROID PEROXIDASE AB 12 IU/mL (0-34)
[2019-09-29 03:05] LABS: GLYCOHEMOGLOBIN (HGB A1C) 6.4 % (4.8-5.6)
[2019-09-29 04:13] VITALS: BP 150/75
--- NOTE | 2019-09-29 06:29 | NUR ---
SLEPT PART OF SHIFT. ANXIOUS ABOUT POSSIBLE HEART PROCEDURE SO XANAX GIVEN X1 WITH NOTED RELIEF. LEFT FACIAL AND EYELID DROOP REMAINS UNCHANGED WITH DECREASED SENSATION TO LEFT SIDE OF FACE. CHEEKS LESS RED THIS SHIFT THAN AT ADMISSION. WALKS WITH STEADY GAIT. VOIDING CLEAR YELLOW URINE THIS SHIFT AND MANAGER REGULATORY NOTIFIED OF CLEAR URINE OUTPUT FREE OF VISIBLE BLOOD, ALSO THAT DAY SHIFT DID NOT START BLADDER IRRIGATION YESTERDAY DUE TO URINE CLEARING UP. WORKING ON GOALS AND PLAN OF CARE FOR NOC. NPO. CONTINUE TO ASSES CLOSELY.
[2019-09-29 07:40] VITALS: BP 163/77
[2019-09-29 08:32] LABS: CALCIUM 8.6 mg/dL (8.5-10.1); CREATININE 0.8 mg/dL (0.6-1.0); POTASSIUM 3.2 mmol/L (3.5-5.1)
--- NOTE | 2019-09-29 11:01 | 2DMMODE ---
[facility] [address] [place] [address] 2 D/M-MODE ECHOCARDIOGRAM Name: PALMIRA GAR Room #: 211-P ADM IN M.R.#: [id number] Admission: 09/27/19 Attend Phys: Vikas Youssef MD Discharge: Date of : 54 Report #: [id number] THIS REPORT FOR: cc: El Ewing,El Ospina,Benjamin Michel MD ~ APPROVED REPORT Study performed: 09/29/2019 09:38:16 EXAM: Comprehensive 2D, Doppler, and color-flow Echocardiogram Patient Location: Bedside Room #: 211 Status: routine BSA: 2.11 HR: 75 bpm BP: 150/75 mmHg Rhythm: NSR Other Information Study Quality: Adequate Indications Diabetes Atrial Fibrillation Syncope Chest Pain Hypertension/HDD 2D Dimensions IVSd: 11.50 (7-11mm) LVOT Diam: 21.55 (18-24mm) LVDd: 52.94 mm PWd: 10.89 (7-11mm) Ascending Ao: 32.78 (22-36mm) LVDs: 36.89 (25-40mm) Aortic Root: 29.79 mm IVC: 18.00 mm Aortic Valve AoV Peak Haresh.: 1.66 m/s AO Peak Gr.: 10.99 mmHg LVOT Max P.85 mmHg LVOT Max V: 0.84 m/s BHAVANA Vmax: 1.86 cm2 Mitral Valve E/A Ratio: 0.8 [facility] [address] [place] [address] 2 D/M-MODE ECHOCARDIOGRAM Name: PALMIRA GAR Room #: 211-P [facility] IN .R.#: [id number] Admission: 09/27/19 Attend Phys: Vikas Youssef MD Discharge: Date of : 54 Report #: [id number] MV Decel. Time: 246.35 ms MV E Max Haresh.: 0.75 m/s MV A Haresh.: 0.91 m/s MV PHT: 71.44 ms IVRT: 106.11 ms Pulmonary Valve PV Peak Haresh.: 0.97 m/s PV Peak Gr.: 3.76 mmHg Pulmonary Vein P Vein S: 0.44 m/s P Vein A: 0.27 m/s P Vein D: 0.26 m/s P Vein A Dur.: 133.8 msec P Vein S/D Ratio: 1.69 Left Ventricle The left ventricle is normal size. There is normal LV segmental wall motion. There is normal left ventricular wall thickness. Left ventricular systolic function is normal. The left ventricular ejection fraction is within the normal range. LVEF is 55-60%. Grade I - abnormal relaxation pattern. Right Ventricle The right ventricle is normal size. The right ventricular systolic function is normal. Atria The left atrium size is normal. The right atrium size is normal. Aortic Valve The aortic valve is normal in structure. No aortic regurgitation is present. There is no aortic valvular stenosis. Mitral Valve The mitral valve is normal in structure. There is no mitral valve regurgitation noted. No evidence of mitral valve stenosis. Tricuspid Valve The tricuspid valve is normal in structure. There is no tricuspid valve regurgitation noted. Pulmonic Valve The pulmonary valve is normal in structure. There is no pulmonic valvular regurgitation. [employer] [facility] [place] [address] 2 D/M-MODE ECHOCARDIOGRAM Name: PALMIRA GAR SD Room #: 211-P ADM IN M.R.#: [id number] Admission: 09/27/19 Attend Phys: Vikas Youssef MD Discharge: Date of : 54 Report #: [id number] The aortic root is normal in size. IVC is normal in size and collapses >50% with inspiration. Pericardium There is no pericardial effusion. <Conclusion> The left ventricle is normal size. LVEF is 55-60%. The aortic valve is normal in structure. The mitral valve is normal in structure. The tricuspid valve is normal in structure. The pulmonary valve is normal in structure. There is no pericardial effusion. <ELECTRONICALLY SIGNED> By: Benjamin Gallo MD 09/29/19 1101 1101 1101 Benjamin Gallo MD /INF
[2019-09-29 11:20] VITALS: BP 145/74
--- NOTE | 2019-09-29 12:54 | HC ---
[facility] [place] [address] CONSULTATION Name: PALMIRA GAR Room #: 211- ADM IN M.R.#: [id number] Admission: 09/27/19 Attend Phys: Vikas Youssef MD Discharge: Date of : 54 Report #: [id number] THIS REPORT FOR: cc: El Ewing,Dewey Villegas MD ~ CC: Vikas Ewing DATE OF SERVICE: 09/28/2019 ENDOCRINE CONSULTATION NOTE CONSULTING PHYSICIAN: Dr. Youssef. REASON FOR CONSULTATION: Hyperthyroidism. HISTORY OF PRESENT ILLNESS: This is a 69-year-old female patient whose medical background is significant for multiple issues including type 2 diabetes mellitus, hyperlipidemia, posttraumatic stress disorder, as well as breast cancer. The patient presented to the ER following an episode of chest pain that was associated with syncope, head trauma, and headache. The patient was admitted for further care and monitoring. Upon admission, the patient was worked up with a variety of laboratory and radiology studies, some of which demonstrated evidence of hyperthyroidism. On further questioning, the patient denies having had a prior personal or family history of hyperthyroidism. She has not appreciated an occurrence of frequent palpitations, tremors, heat intolerance, sweating, anxiety beyond her baseline, abnormal weight changes. She does not appreciate neck fullness, pain, compressive symptoms, or voice hoarseness. The patient is known to have type 2 diabetes mellitus and she has largely controlled it with metformin monotherapy at a dose of 500 mg daily, but primarily with diet and exercise measures. She reports blood glucose values in the low 100 mg/dL range. She does; however, acknowledge that she has peripheral diabetic neuropathy and cataract, but not diabetic retinopathy or nephropathy. She is known to have hyperlipidemia and is maintained on atorvastatin therapy. REVIEW OF SYSTEMS: CONSTITUTIONAL: Fatigue, tiredness, no weight changes, fever or chills. HEENT: Negative for sore throat, sinus pain or ear drainage. [address] [address] CONSULTATION Name: PALMIRA GAR Room #: [address] [place] [address] IN M.R.#: [id number] Admission: 09/27/19 Attend Phys: Vikas Youssef MD Discharge: Date of : 54 Report #: [id number] PULMONARY: Occasional shortness of breath, intermittent cough, but no hemoptysis. CARDIAC: Negative for palpitations, but noted for chest pain and syncope. GASTROINTESTINAL: Negative for abdominal pain, nausea, vomiting or changes in the bowel movement frequency. 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 Otherwise, her review of systems is noncontributory other than those mentioned in the HPI. PAST MEDICAL HISTORY: 1. Type 2 diabetes mellitus. 2. Hyperlipidemia. 3. Obesity. 4. GERD. 5. Diabetic neuropathy. 6. Fibromyalgia. 7. Shingles to her left ear and face. 8. Davis's palsy, left sided. 9. History of breast cancer. 10. Posttraumatic stress disorder. PAST SURGICAL HISTORY: Noted for hysterectomy, bilateral mastectomy, and cholecystectomy. OUTPATIENT MEDICATIONS: Include metformin 500 mg daily, duloxetine 60 mg daily, atorvastatin 20 mg at bedtime, omeprazole daily, and gabapentin 600 mg t.i.d. DRUG ALLERGIES: SHE IS ALLERGIC TO AMOXICILLIN, PIPERACILLIN, ZOSYN, CODEINE, MORPHINE, PREDNISONE, CONTRAST DYE, WELL A FEW NARCOTIC MEDICATIONS. FAMILY HISTORY: Noncontributory. SOCIAL HISTORY: She is single, has 2 children. Lives with her sister. She denies use of tobacco, but drinks alcohol only seldom on social occasions. PHYSICAL EXAMINATION: GENERAL: Pleasant female patient, who is not in apparent pain or distress. VITAL SIGNS: Blood pressure is 160/73 mmHg, heart rate is 75 beats per minute, respirations 18 per minute, temperature 36.7 degrees Celsius. CONSTITUTIONAL: The patient is sitting upright in bed, appears comfortable, not in active pain or distress. HEENT: Noted for left facial drooping, but anicteric sclerae. Intact extraocular motions noted in the right eye, but not the left eye. [facility] [address] [place] [address] CONSULTATION Name: PALMIRA GAR Room #: 211-P ADM IN M.R.#: [id number] Admission: 09/27/19 Attend Phys: Vikas Youssef MD Discharge: Date of : 54 Report #: [id number] NECK: Supple, without JVD or carotid bruits. The thyroid gland is enlarged and irregular in texture, somewhat nodular, nontender, no lymphadenopathy. CHEST: Noted for moderate breath sounds with scattered rales. No wheezes or crackles. HEART: Regular rate and rhythm without murmurs or gallops. ABDOMEN: Soft, lax. No guarding. Active bowel sounds. EXTREMITIES: Lower extremity exam is noted for ankle edema, but appreciable pedal pulses. No skin breaks or ulcerations. NEUROLOGIC: Awake, alert and oriented to time, place and person. The remainder of her examination is nonfocal other than for left facial droop and paralysis. She has normal deep tendon reflexes. PSYCHIATRY: Pleasant, interactive. Normal mood and affect. Normal thought content. LABORATORY RESULTS: Blood glucose values have ranged between 129 and 150 mg/dL. Otherwise, sodium 138, potassium 3.7, chloride 102, CO2 of 26, anion gap 10, BUN 15, creatinine 0.9, glucose 129, AST 21, lipase 39. Total bilirubin 0.5, calcium 8.6, magnesium 1.9, alkaline phosphatase 103, ALT 26, total protein 7.8, albumin 3.6, EGFR 62. Lactic acid 1.2. Troponin is negative. Total cholesterol is 126, triglycerides 108, HDL 49, LDL 56, free T4 is 1.7, upper limit of normal is 1.46. Free T3 is 3.13, upper limit of normal is 3.98. INR is 1.0. White blood count 15.7, hemoglobin 13.2, hematocrit 38.2, platelets 347. TSH 0.113. Hemoglobin A1c is 6.3. A CT scan of the head without contrast was done as well and was largely unremarkable. ASSESSMENT AND PLAN: 1. Hyperthyroidism. The patient presents with thyroid hormone function indices that are suggestive of hyperthyroidism. The patient was counseled at length about the pathogenesis of hyperthyroidism, its different etiologies, implications, and about the importance of maintaining adequate thyroid hormone control to avoid related complications. The patient is clinically euthyroid; however, her indices present a legit case for hyperthyroidism. I will move towards working the patient up with thyroid serology including TSI and TPO antibody titers, as well as a thyroid ultrasound. Further workup and management will be based on these results. 2. Type 2 diabetes mellitus. The patient seems to have been under adequate control largely on dietary measures and with low dose metformin monotherapy. Her hemoglobin A1c is consistent with this outlook. She is to continue with the same. 3. Hyperlipidemia. The patient is maintained on atorvastatin therapy with adequate lipid control as per her measured lipid panel. She is to continue with the same. 4. Diabetic neuropathy. The patient has baseline difficulties with diabetic neuropathy that overlapped with fibromyalgia. She is maintained on a [facility] [employer] [address] [place] [address] CONSULTATION Name: PALMIRA GAR Room #: 211-P [facility] IN [facility].#: [id number] Admission: 09/27/19 Attend Phys: Vikas Youssef MD Discharge: Date of : 54 Report #: [id number] combination of duloxetine and gabapentin. She is to continue with both. I certainly appreciate this consultation by Dr. Youssef. <ELECTRONICALLY SIGNED> By: Dewey Xavier MD 09/29/19 1254 1254 1338 Dewey Xavier MD /nt
--- NOTE | 2019-09-29 14:40 | NUR ---
Case opened to screen for dc planning needs. Chart reviewed and case discussed with the care team. Brush Polisher spoke with the pt via phone. She is a&ox4 and indicates that she lives with her sister Louise. Her bedrooma and bath are in the basement and she has a flight of steps to go up to the kitchen and living room. She is normally indep with gait and adl's with no assistive device. She does have a cane and rwalker if needed. She notes her sister is her dpoa for hc if needed. Her pcp is Dr. Ewing. She denies any dc needs other than an aid to help with housekeeping/homemaker tasks. She has applied for [place] Medicaid and is awaiting approval. HCBS referral discussed. Pt and her sister may also be able to pool resources to hire a live in housekeeper. She has been disabled since 2003 and has a hx of breast ca with bilat mastectomy, fibromyaligia and depression. She utilizes medical [facility] [employer]. Possible dc home today or tomorrow pending her progress. She is being treated for afib/ hematuria. No dc needs anticipated at this time. Pt is steady on her feet and feels she is at baseline functionally. Family drives her to appts.
[2019-09-29 15:15] VITALS: BP 138/71
[2019-09-29 15:20] VITALS: BP 152/89
--- NOTE | 2019-09-29 15:27 | NUR ---
ASSUMED CARE AT SHIFT CHANGE, ALERT AND ORIENTED X4. DENIES ANY DISCOMFORT AT THIS TIME. ASSESSMENT DOCUMENTED, AND SCHEDULED MEDS GIVEN BP IS BACK TO 145/72. NO HAMATOURIA OBSERVED AND PATIENT REPORTED NONE AT THIS TIME. PROGRESSING TOWARDS GOALS AND WILL CONTINUE WITH POC.
[2019-09-29 20:45] VITALS: BP 160/94
--- NOTE | 2019-09-30 02:56 | NUR ---
PATIENT IS PROGRESSING SLOWLY IN HER CARE PLAN. VITAL SIGNS STABLE WITH PATIENT HAVING NO COMPLAINTS OF NAUSEA. PATIENT DID COMPLAIN OF PAIN IN HER LEFT EAR FREQUENTLY WHICH WAS TREATED THROUGH MEDICATION AND NON PHARMACOLOGICAL INTERVENTIONS. FULLY ORIENTED, PATIENT IS ABLE TO CALL APPROPRIATELY FOR NEEDS AND PARTICIPATE FULLY IN CARE. UP WITH STANDBY ASSISTANCE MULTIPLE TIMES INCIDENT FREE, PATIENT APPEARS STRONG AND BALANCED WHEN AMBULATING. CONTINUE PLAN OF CARE.
[2019-09-30 05:13] VITALS: BP 151/82
[2019-09-30 07:54] VITALS: BP 151/84
[2019-09-30] MEDS ORDERED: METOPROLOL SUCC50 MG PO (09:59)
[2019-09-30] MEDS ORDERED: METHIMAZOLE5 MG PO (10:00)
[2019-09-30] MEDS ORDERED: ASPIR 8181 MG PO (10:00)
[2019-09-30] MEDS ORDERED: CEFUROXIME500 MG PO (10:04)
[2019-09-30 10:39] LABS: HEMATOCRIT 38.4 % (37.0-47.0); MCH 29.2 pg (26.0-34.0); MCHC 33.8 g/dL (28.0-37.0); MCV 86.4 fL (80.0-100.0); RBC 4.45 mil/uL (4.20-5.00); RDW 14.2 % (10.5-14.5); WBC 8.4 thou/uL (4.0-11.0)
[2019-09-30 10:51] LABS: CALCIUM 8.7 mg/dL (8.5-10.1); CREATININE 0.8 mg/dL (0.6-1.0)
[2019-09-30 11:43] VITALS: BP 151/84
[2019-09-30 12:27] VITALS: BP 136/69
--- NOTE | 2019-09-30 14:11 | NUR ---
ASSUMED CARE AT SHIFT, ALERT AND ORIENTED X4. VSS AND NSR ON THE MONITOR. ASSESSMENT DOCUMENTED. DISCHARGE AND MEDICATION INTRUCTIONS GIVEN TO PATIENT AND HER SISTER, AND PATIENT DSICHARGED HOME.
[2019-10-02 06:06] LABS: THYROID STIMULATING IG < 0.10 IU/L (0.00-0.55)
== END 2019-09-30 14:28 | disposition home or self-care (01) | DRG 308 ==
LOC: ER 19:34 → 2N 21:24 → EROBS 21:24 → 2N 23:27
PROVIDERS: Emergency Medicine; Internal Medicine; Nurse Practitioner; Nurse Practitioner Family; ADMIT Internal Medicine; ATTEND Internal Medicine
DX: I48.91 Unspecified atrial fibrillation (principal); R65.11 Systemic inflammatory response syndrome (SIRS) of non-infectious origin with acute organ dysfunction; N39.0 Urinary tract infection, site not specified; B02.29 Other postherpetic nervous system involvement; Z68.41 Body mass index [BMI] 40.0-44.9, adult; E05.90 Thyrotoxicosis, unspecified without thyrotoxic crisis or storm; B02.9 Zoster without complications; G51.0 Bell's palsy; E78.00 Pure hypercholesterolemia, unspecified; E66.9 Obesity, unspecified; E78.5 Hyperlipidemia, unspecified; K21.9 Gastro-esophageal reflux disease without esophagitis; E11.40 Type 2 diabetes mellitus with diabetic neuropathy, unspecified; E87.6 Hypokalemia; M79.7 Fibromyalgia; F43.10 Post-traumatic stress disorder, unspecified; F12.90 Cannabis use, unspecified, uncomplicated; I48.92 Unspecified atrial flutter; R31.0 Gross hematuria; B96.20 Unspecified Escherichia coli [E. coli] as the cause of diseases classified elsewhere; Z82.49 Family history of ischemic heart disease and other diseases of the circulatory system; Z83.6 Family history of other diseases of the respiratory system; Z88.8 Allergy status to other drugs, medicaments and biological substances; Z88.6 Allergy status to analgesic agent; Z88.1 Allergy status to other antibiotic agents; Z90.13 Acquired absence of bilateral breasts and nipples; Z85.3 Personal history of malignant neoplasm of breast; Z90.49 Acquired absence of other specified parts of digestive tract; Z91.041 Radiographic dye allergy status; Z87.891 Personal history of nicotine dependence; Z79.82 Long term (current) use of aspirin; Z79.899 Other long term (current) drug therapy
CPT/HCPCS: 10081

== ENCOUNTER → 2019-11-27 | Outpatient (CLI) | payer MEDICARE ==
[~2019-11-27] MED LIST changes: +ASPIR 8181 MG PO; +CEFUROXIME500 MG PO; +METHIMAZOLE5 MG PO; +METOPROLOL SUCC50 MG PO; +NEURONTIN300 MG PO
== END ==
LOC: SJCVC 13:46
PROVIDERS: ATTEND Internal Medicine Cardiovascular Disease
DX: R94.31 Abnormal electrocardiogram [ECG] [EKG] (principal); I48.0 Paroxysmal atrial fibrillation; I49.1 Atrial premature depolarization; E78.5 Hyperlipidemia, unspecified; E11.9 Type 2 diabetes mellitus without complications; I10 Essential (primary) hypertension; K21.9 Gastro-esophageal reflux disease without esophagitis; Z79.82 Long term (current) use of aspirin; Z79.899 Other long term (current) drug therapy

== ENCOUNTER → 2020-06-16 | Outpatient (CLI) | payer OTHER | LOC: CAT 11:17 | PROVIDERS: ATTEND Neuromusculoskeletal Medicine & OMM | DX: E04.2 Nontoxic multinodular goiter (principal); R59.0 Localized enlarged lymph nodes; M25.78 Osteophyte, vertebrae; M48.02 Spinal stenosis, cervical region; K76.0 Fatty (change of) liver, not elsewhere classified ==

== ENCOUNTER 2020-07-14 06:16 | Observation (INO) | payer OTHER ==
[~2020-07-14] VITALS: Ht 162.6 cm; Wt 108.9 kg
[~2020-07-14 06:16] MED LIST changes: +ASA81BEC PO; +COQ-10100 MG PO; +MEDICAL MARIJUANA; +PROBIOTIC1 EAC7 PO
[2020-07-14 07:32] VITALS: BP 161/83
[2020-07-14 12:00] VITALS: BP 156/62
[2020-07-14 17:25] VITALS: BP 135/75
[2020-07-14 18:59] VITALS: BP 124/60; BP 139/88
[2020-07-15 03:40] VITALS: BP 127/64
[2020-07-15 07:00] VITALS: BP 144/86
[2020-07-15 10:55] VITALS: BP 144/86
--- NOTE | 2020-07-15 17:06 | PATH ---
[facility] [place] [address] PATHOLOGY RPT PROCEDURE Name: PALMIRA GAR Room #: 434-P JUVENAL Loo#: [id number] Admission: 07/14/20 Date of : 54 Discharge: 07/15/20 Report #: [id number] Path Case #: [id number] LCA Accession Number: [id number] . 01 Material submitted: . thyroid gland - TOTAL THYROIDECTOMY-SUTURE SUPERIOR RIGHT THYROID LOBE . 01 Clinical history: . THYROIDECTOMY MULTINODULAR GOITER,SUBSTERNAL . 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 - Previous biopsy site changes identified within the left lobe of thyroid. - Multinodular hyperplasia. - 4 mm parathyroid identified within the right thyroid lobe. - Negative for malignancy. (IUV:wyatt; 07/15/2020) QMS 07/15/2020 1621 Local . 02 Electronically signed: . Anahy Scott MD, Pathologist NPI- [id number] . 01 Gross description: . The specimen is received in formalin, labeled "Palmira Gar, total thyroidectomy suture superior right thyroid lobe " and consists of a 127 gm total thyroidectomy specimen oriented as suture right superior lobe of thyroid. The specimen has the following measurements: Right lobe 9 x 4 x 3.8 cm ; Left lobe 9 x 3.5 x 3 cm; and Isthmus 5 x 2.5 x 2 cm. There no lymph nodes or parathyroid tissue present. The specimen is differentially inked as: posterior yellow, inferior red, right anterior blue, left anterior black, and anterior isthmus blue. On sectioning, multiple waxy glistening nodules are identified measuring up to 3.2 cm with scant areas of calcification noted. Block Press Operator sections are submitted in 10 cassettes. 1-5 Right Lobe 6 Isthmus 7-10 Left Lobe ([facility]; 07/14/2020) ARTURO/ARTURO 07/15/2020 1619 Local . 02 Pathologist provided ICD-10: D34, E04.[address] [address] PATHOLOGY RPT PROCEDURE Name: PALMIRA GAR SD Room #: 434-P [facility] M.RRon#: [id number] Admission: 07/14/20 Date of : 54 Discharge: 07/15/20 Report #: [id number] Path Case #: [id number] . 02 CPT . [id number], [id number] Specimen Comment: A courtesy copy of this report has been sent to [phone] Specimen Comment: [id number] Specimen Comment: Report sent to / DR ROWAN Performed at: [address], [place], [place] [id number] MD Pito Beltrán MD Phone: [phone] Performed at: [address] [id number] MD Anahy Scott MD Phone: [phone]
--- NOTE | 2020-07-18 16:45 | O ---
[facility] [place] [address] OPERATIVE REPORT Name: PALMIRA GAR Room #: 434-P [facility]..#: [id number] Admission: 07/14/20 Attend Phys: Derek Maciel MD Discharge: 07/15/20 Date of : 54 Report #: [id number] THIS REPORT FOR: cc: El Ewing,Derek Birch MD ~ DOC #: [id number] cc: MD Derek Curiel MD DATE OF SERVICE: 07/14/2020 SURGEON: Derek Maciel MD PREOPERATIVE DIAGNOSES: Multinodular goiter and thyromegaly. POSTOPERATIVE DIAGNOSES: Multinodular goiter and thyromegaly. OPERATIVE PROCEDURE: Total thyroidectomy with removal of large multinodular goiter with substernal extension. ANESTHESIA: General. ESTIMATED BLOOD LOSS: 50 mL. INDICATIONS FOR SURGERY: The patient is an obese female who has a large massive multinodular goiter that displaying her great vessels in her neck and extending down into the upper portion of her mediastinum. DESCRIPTION OF PROCEDURE: The patient was placed on the operating table in the supine position. After general endotracheal anesthesia had been achieved and intubation with a [employer] NIM (nerve integrity monitor) endotracheal tube. Each recurrent laryngeal nerve was monitored. A threshold sensitivity 100 microvolts. A stimulator was set at 1.0 milliamps. Both recurrent laryngeal nerves were identified, preserved during the course of the procedure with the assistance of the nerve monitor and the nerve stimulator. An elongated low collar horizontal skin crease incision was outlined in the lower portion of the neck. The skin site was injected with lidocaine with epinephrine. The neck was prepped and draped in a sterile fashion. This incision was then made through skin, subcutaneous tissue and platysma. Subplatysmal skin flaps were elevated superiorly and inferiorly. The strap muscles were divided along the median raphe and retracted laterally over each side of the thyroid. I started my dissection on the left side. The large goiter was extending down along the trachea down below the clavicular heads on the left side. It was multinodular. I was able to dissect it free from the [facility] [address] [place] [address] OPERATIVE REPORT Name: PALMIRA GAR Room #: 434-P [facility] M.R.#: [id number] Admission: 07/14/20 Attend Phys: Derek Maciel MD Discharge: 07/15/20 Date of : 54 Report #: [id number] overlying strap muscles from the ____ of the great vessels laterally. I then began to rotate the gland and deliver it. I freed up the inferior pole attachments. I did not identify the inferior parathyroid in the process, although I looked for one. I then identified the left recurrent laryngeal nerve as I delivered the goiter from the upper portion of the mediastinum. The nerve was found along the tracheoesophageal groove. It was followed up to and into the larynx and preserved. The middle thyroid vein was divided with the Harmonic scalpel. The superior pole vessels were isolated and divided with a Harmonic scalpel. As the gland was rotated over the undersurface of the markedly enlarged thyroid, was dissected away from the ____ left superior parathyroid gland, which was preserved. The suspensory ligament was divided medial and superficial to the nerve. The left thyroid lobe was dissected off the trachea, past the midline ____ trachea was relatively narrow in diameter. Attention was turned to the right side. Similar procedure performed on the right side. The right inferior pole nodule was extending down deep below the right clavicular head. I started my dissection superiorly. I raise the strap muscle superiorly and identified the superior pole vessels. These were divided with a Harmonic scalpel. I freed up the lateral attachments to the multinodular goiter to the overlying strap muscles and to the carotid sheath. As I rotated the gland over, I identified the right superior parathyroid gland on the undersurface of the upper portion of the right thyroid lobe. It was dissected off the left attached to the vascular pedicle and preserved. The right recurrent laryngeal nerve was identified deep to this and followed into the larynx and preserved. I then divide the suspensory ligament and the upper portion of the undersurface of the right thyroid lobe from the recurrent laryngeal nerve. I then rotated and delivered the large inferior nodule away from the trachea and away from under the clavicle. As I rotated up, I divided the inferior pole vessels. I then never saw the right inferior parathyroid gland. I then was able to dissect the entire thyroid off the trachea and delivered as a specimen. The wound was irrigated with saline. Bipolar cautery was used for appropriate to achieve hemostasis. The integrity of each recurrent laryngeal nerve was confirmed with the stimulator. Two parathyroid glands were identified. I placed a 10-Uzbek Alfredo drain in the wound and brought it out through a stab incision where it was secured to the skin with an Op-Site dressing. The strap muscles were reapproximated with 3-0 Vicryl and the skin was closed with a buried layer of 4-0 Vicryl and Dermabond. The patient was awakened and taken to the operating room and taken to recovery room in stable condition. She will be discharged home in the morning after drain removal. [address] [address] OPERATIVE REPORT Name: PALMIRA GAR Room #: 434-P [facility] [place] .Ron#: [id number] Admission: 07/14/20 Attend Phys: Derek Maciel MD Discharge: 07/15/20 Date of : 54 Report #: [id number] DISCHARGE MEDICATIONS: Include acetaminophen with hydrocodone, cefadroxil, calcium carbonate, calcitriol, Synthroid. Her diet is as tolerated. Activity is limited. She will have a serum calcium level on the third postoperative day and a return visit in 1 week. Derek Maciel MD RFT/MAMTA/IQB <ELECTRONICALLY SIGNED> By: Derek Maciel MD 07/18/20 1645 0815 0849 Derek Maciel MD /nt
== END 2020-07-15 13:27 | disposition home or self-care (01) ==
LOC: TBA 06:16 → OR 06:16 → 4S 10:34 → OR 11:55 → 4S 16:01
PROVIDERS: ADMIT Otolaryngology Plastic Surgery within the Head & Neck; ATTEND Otolaryngology Plastic Surgery within the Head & Neck
DX: E04.2 Nontoxic multinodular goiter (principal); Z88.8 Allergy status to other drugs, medicaments and biological substances; Z88.5 Allergy status to narcotic agent
CPT/HCPCS: 50010; 50101; 50331; 50386; 50417; 52190; 52220; 54118; 56524; 56526; 57006; 62110; 62900; 70005

== ENCOUNTER 2020-07-21 14:06 | Emergency (ER) | payer OTHER ==
[~2020-07-21] VITALS: Ht 162.6 cm; Wt 108.9 kg
[~2020-07-21 14:06] MED LIST changes: +METFORMIN HCL500 M1 PO; -METFORMIN HCL500 MG PO
[2020-07-21 14:50] LABS: CALCIUM 7.5 mg/dL (8.5-10.1); CREATININE 0.7 mg/dL (0.6-1.0); POTASSIUM 3.2 mmol/L (3.5-5.1)
[2020-07-21 17:07] VITALS: BP 154/70
[2020-07-22] MEDS ORDERED: CALCITRIOL0.25 MCG PO (21:06)
[2020-07-22] MEDS ORDERED: ASA81BEC PO (21:13)
== END 2020-07-21 17:20 | disposition home or self-care (01) ==
LOC: ER 14:06
PROVIDERS: Nurse Practitioner
DX: E83.51 Hypocalcemia (principal); M79.7 Fibromyalgia; E78.00 Pure hypercholesterolemia, unspecified; E11.9 Type 2 diabetes mellitus without complications; I48.91 Unspecified atrial fibrillation; Z87.891 Personal history of nicotine dependence; Z88.1 Allergy status to other antibiotic agents; Z91.041 Radiographic dye allergy status; Z88.8 Allergy status to other drugs, medicaments and biological substances; Z79.899 Other long term (current) drug therapy

== ENCOUNTER 2020-07-22 15:57 | Inpatient (IN) | payer OTHER ==
[~2020-07-22] VITALS: Ht 162.6 cm; Wt 106.6 kg
[2020-07-22 16:15] VITALS: BP 140/68
[2020-07-22 17:44] LABS: POTASSIUM 3.2 mmol/L (3.5-5.1)
[2020-07-22 17:46] LABS: CALCIUM 7.6 mg/dL (8.5-10.1)
[2020-07-22 19:42] VITALS: BP 165/72
[2020-07-22 19:55] VITALS: BP 157/78
[2020-07-22 20:26] VITALS: BP 149/71
[2020-07-22 20:56] VITALS: BP 149/71
[2020-07-22] MEDS ORDERED: CALCITRIOL0.25 MCG PO (21:06)
[2020-07-22] MEDS ORDERED: ASA81BEC PO (21:13)
--- NOTE | 2020-07-22 23:03 | NUR ---
PT ADMITTED TO UNIT APPROX 2010, CONSENTS OBTAINED, ADMISSION PACKET PROVIDED. PT AOX4, REPORTING RESTLESSNESS. PT DENIES PAIN BUT REPORTS GENERALIZED DISCOMFORT. PT ALSO DENIES SOB WHILE ON ROOM AIR. PT TOLERATING PO INTAKE OF FLUIDS AND REGULAR DIET WITHOUT ISSUE. PT WITHOUT NAUSEA OR EMESIS. PT AMBULATING WITH STANDBY TO X1 ASSIST TO BATHROOM, GAIT INTERMITTENTLY UNSTEADY. PT REPORTS NUMBNESS AND TINGLING IN FINGERS, TOES, AND MOUTH. CAPILLARY REFILL LESS THAN 3SEC, PERIPHERAL PULSES PALPABLE IN ALL EXTREMITIES. PT RESTING IN BED THROUGHOUT SHIFT, FREQUENT REPOSITIONING ENCOURAGED, PT NOTED TO SHIFT INDEPENDENTLY. PT ENCOURAGED TO NOTIFY STAFF FOR ALL NEEDS, CALL LIGHT WITHIN REACH, BED ALARM ON, BED LOCKED IN LOWEST POSITION, FREQUENT MONITORING WILL CONTINUE.
[2020-07-23 05:16] LABS: CALCIUM 7.7 mg/dL (8.5-10.1); CREATININE 0.7 mg/dL (0.6-1.0)
[2020-07-23 05:24] LABS: POTASSIUM 3.2 mmol/L (3.5-5.1)
[2020-07-23 06:08] VITALS: BP 142/68
--- NOTE | 2020-07-23 07:05 | EKG ---
[place] [address] [facility] [place] [address] ELECTROCARDIOGRAM REPORT Name: PALMIRA GAR Room #: 450-P ADM IN M.R.#: [id number] Admission: 07/22/20 Attend Phys: Yunior Kong Discharge: Date of : 54 Report #: [id number] [facility] ED Test Date: 2020-07-22 Test Time: 17:11:22 Pat Name: PALMIRA GAR Department: Room: 450 Gender: F Director Strategic Planning: nalini : 1950 Requested By: Osman Orlando Order Number: [id number] MD: Jamshid Villaseñor Measurements Intervals [place] Rate: 81 P: 59 SD: 147 QRS: 14 QRSD: 105 T: 55 QT: 437 QTc: 508 Interpretive Statements Sinus rhythm Ventricular premature complex Prolonged QT interval Baseline wander in lead(s) V3 Compared to ECG 09/28/2019 07:46:20 Ventricular premature complex(es) now present T-wave abnormality no longer present Electronically Signed On 07-23-2020 7:05:31 CDT by Jamshid Villaseñor [email or web address] <ELECTRONICALLY SIGNED> By: Jamshid Villaseñor MD, [facility] 07/23/20704 10 10 Jamshid Villaseñor MD, [facility] /EPI
[2020-07-23 08:00] VITALS: BP 153/82
--- NOTE | 2020-07-23 10:57 | NUR ---
PT ADMITTED RELATED TO HYPOCALCEMIA AND HYPOKALEMIA. CM REVIEWED CHART AND SPOKE WITH CARE TEAM. CM MET WITH PT AT BEDSIDE THIS DAY. PT APPEARED TO BE A&O X4. CM ROLE INTRODUCED. PT INDICATED SHE LIVES IN A HOUSE WITH HER SISTER WITH WITH NO STEPS TO ENTER BUT 11 STEPS TO HER BEDROOM IN THE BASEMENT. PT INDICATED SHE HAS A FWW FOR HOME USE. 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 PT INDICATED SHE PLANS TO RETURN HOME ONCE MEDICALLY STABLE. CARE TEAM INDICATED POSSIBLE DC HOME THIS DAY BUT WHEN CM INDICATED THAT TO HER SHE STATED THAT PHYSICIAN INDICATED THAT THEY WERE GOING TO CHECK LABS TOMORROW.
--- NOTE | 2020-07-23 11:44 | NUR ---
ORDERS RECEIVED FOR PT EVAL AND TREAT. Pt ADMITTED W/ TREMORS, RESTLESSNESS, PRESYNCOPE/WEAKNESS, ELECTROLYTE IMBALANCE W/ LOW POTASSIUM AND CALCIUM. Pt HAS HX OF VERTIGO IN L EAR D/T HX OF SHINGLES SO SHE KNOWS SHE HAS TO AVOID TURNING HER HEAD TO THE L. REPORTS A 'VIBRATING' SENSATION ALL OVER HEAD TO TOE. LIVES W/ SISTER IN HOME W/ NO GABBY AND 11 STEPS TO BASEMENT W/ HR. HAS 4WW THAT SHE KEEPS IN THE CAR. INDEP W/ ADLs. STATED 'I DON'T NEED PT.' POLITELY DECLINING PT EVALUATIONA AND STATED SHE IS UP AD GLORIA NOW. DISCUSSED W/ RN. ACUTE PT TO SIGN OFF. PLEASE RE-CONSULT PT IF Pt'S CONDITION CHANGES.
--- NOTE | 2020-07-23 15:27 | NUR ---
ASSUMED CARE OF PATIENT AT SHIFT CHANGE. ASSESSMENT CHARTED. MEDICATIONS ADMINISTERED PER EMAR. VSS. PATIENT IS ALERT AND ORIENTED AND CALLS OUT NEEDED. PATIENT DENIES PAIN AND IS TOLERATING DIET WELL W NO NAUSEA OR VOMITING. VOICING "VIBRATING SENSATION" ALL OVER BODY. IV ON R AC W NS INFUSING AND NO ISSUES BESIDES PRESSURE WHEN BENDING ARM. CALCIUM GLUCONATE ONETIME ORDERED AND ADMINISTERED W NO ISSUES. LABS TO BE DRAWN; PATIENT TOLD SHE WILL DISCHARGE IF LABS OK FROM HOSPITALIST. FSBS STABLE THIS SHIFT; REFUSED LUNCHTIME INSULIN STATING "I DON'T TAKE IT AT HOME". PATIENT HAS BEEN SR ON TELEMETRY. 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 FALL PRECAUTIONS REINFORCED. WILL CONTINUE TO MONITOR
[2020-07-23 17:05] VITALS: BP 153/81
[2020-07-23 19:31] VITALS: BP 159/75
--- NOTE | 2020-07-24 04:54 | NUR ---
patient aox4 makes needs known. patient has a scar on the neck c/d/i, no s/s of infection. patient denied pain or discomfort. patient denied tremors or restlessness. fall precaution in place. patient was in bed asleep at this time breathing regular and unlaboured.
[2020-07-24 05:22] LABS: CREATININE 0.6 mg/dL (0.6-1.0); MAGNESIUM 1.4 mg/dL (1.8-2.4); POTASSIUM 3.2 mmol/L (3.5-5.1)
[2020-07-24 07:15] VITALS: BP 166/83
[2020-07-24] MEDS ORDERED: ACETAMINOPHEN325 M1 PO (11:00)
[2020-07-24] MEDS ORDERED: CALCITRIOL0.25 MCG PO (11:00)
[2020-07-24] MEDS ORDERED: LISINOPRIL10 MG PO (11:00)
[2020-07-24] MEDS ORDERED: CALTRATE-600 W1 EACH PO (11:00)
[2020-07-24] MEDS ORDERED: TIROSINT75 MCG PO (11:00)
[2020-07-24] MEDS ORDERED: MAGOX 400400 MG PO (11:00)
[2020-07-24] MEDS ORDERED: ZOFRAN 4 MG ORAL4 MG PO (11:00)
[2020-07-24] MEDS ORDERED: TUMS200 MG PO (11:06)
[2020-07-24 11:53] VITALS: BP 166/83
--- NOTE | 2020-07-24 14:20 | NUR ---
PT ALERT AND ORIENTED TIMES FOUR. VSS. SR ON TELE. PT DENIES PAIN/SOA. PT TOLERATES MEDS AND MEALS. PT UP AB GLORIA WITH STEADY GAIT. PLANS TO DISCHARGE HOME TODAY. WILL CONTINUE TO MONITOR.
== END 2020-07-24 13:50 | disposition home or self-care (01) | DRG 640 ==
LOC: ER 15:57 → EROBS 19:02 → 4W 19:02
PROVIDERS: Nurse Practitioner; ADMIT Hospitalist; ATTEND Hospitalist
DX: E87.6 Hypokalemia (principal); N17.0 Acute kidney failure with tubular necrosis; E44.0 Moderate protein-calorie malnutrition; E83.51 Hypocalcemia; E83.42 Hypomagnesemia; K21.9 Gastro-esophageal reflux disease without esophagitis; E78.00 Pure hypercholesterolemia, unspecified; M79.7 Fibromyalgia; F43.10 Post-traumatic stress disorder, unspecified; E78.5 Hyperlipidemia, unspecified; I48.91 Unspecified atrial fibrillation; E05.90 Thyrotoxicosis, unspecified without thyrotoxic crisis or storm; E11.40 Type 2 diabetes mellitus with diabetic neuropathy, unspecified; F41.9 Anxiety disorder, unspecified; F32.9 Major depressive disorder, single episode, unspecified; Z90.49 Acquired absence of other specified parts of digestive tract; Z90.710 Acquired absence of both cervix and uterus; Z85.3 Personal history of malignant neoplasm of breast; Z90.13 Acquired absence of bilateral breasts and nipples; Z79.899 Other long term (current) drug therapy; Z79.84 Long term (current) use of oral hypoglycemic drugs; Z88.5 Allergy status to narcotic agent; Z88.8 Allergy status to other drugs, medicaments and biological substances; Z88.1 Allergy status to other antibiotic agents; Z91.041 Radiographic dye allergy status; Z87.891 Personal history of nicotine dependence
CPT/HCPCS: 10045

== ENCOUNTER → 2020-08-04 | Outpatient (CLI) | payer OTHER ==
[~2020-08-04] MED LIST changes: +ACETAMINOPHEN325 M1 PO; +CALCITRIOL0.25 MCG PO; +CALTRATE-600 W1 EACH PO; +LISINOPRIL10 MG PO; +MAGOX 400400 MG PO; +TIROSINT75 MCG PO; +TUMS200 MG PO; +ZOFRAN 4 MG ORAL4 MG PO
--- NOTE | 2020-08-04 13:34 | NUR ---
1330-DC INSTRUCTIONS REVIEWED WITH PT, ALL QUESTIONS ANSWERED. SISTER DRIVING PT HOME. INCISION WAS DRESSED WITH A DRESSING AFTER DERMABOUND WAS APPLIED.
== END | disposition home or self-care (01) ==
LOC: CATH 09:27
PROVIDERS: ATTEND Internal Medicine
DX: I48.0 Paroxysmal atrial fibrillation (principal); E78.5 Hyperlipidemia, unspecified; E11.40 Type 2 diabetes mellitus with diabetic neuropathy, unspecified; M79.7 Fibromyalgia; F41.9 Anxiety disorder, unspecified; Z98.890 Other specified postprocedural states; Z79.899 Other long term (current) drug therapy; Z79.01 Long term (current) use of anticoagulants; Z85.3 Personal history of malignant neoplasm of breast; Z90.49 Acquired absence of other specified parts of digestive tract; Z90.710 Acquired absence of both cervix and uterus

== ENCOUNTER 2020-09-08 21:18 | Emergency (ER) | payer OTHER ==
[~2020-09-08] VITALS: Ht 162.6 cm; Wt 103.4 kg
[2020-09-08 22:41] LABS: ABSOLUTE NEUTROPHILS 6.1 thou/uL (1.4-8.2); BASOPHILS 0.4 % (0.0-2.0); HEMATOCRIT 35.8 % (37.0-47.0); HEMOGLOBIN 11.9 gm/dL (12.0-15.0); LYMPHOCYTES 28.8 % (24.0-44.0); MCH 28.8 pg (26.0-34.0); MCHC 33.3 g/dL (28.0-37.0); MCV 86.4 fL (80.0-100.0); MONOCYTES 7.4 % (1.0-8.0); PLATELET COUNT 422 thou/uL (150-400); POLYS 61.4 % (36.0-66.0); RBC 4.14 mil/uL (4.20-5.00); RDW 14.8 % (10.5-14.5); WBC 9.9 thou/uL (4.0-11.0)
[2020-09-08 22:59] LABS: CALCIUM 8.2 mg/dL (8.5-10.1); CREATININE 0.8 mg/dL (0.6-1.0); POTASSIUM 4.1 mmol/L (3.5-5.1)
[2020-09-08] MEDS ORDERED: MAGNESIUM400 MG PO (23:36)
[2020-09-09 01:33] VITALS: BP 133/66
--- NOTE | 2020-09-09 07:16 | EKG ---
[place] [address] [place] [address] ELECTROCARDIOGRAM REPORT Name: PALMIRA GAR [id number] Admission: 09/08/20 Attend Phys: Discharge: 09/09/20 Date of : 54 Report #: [id number] [facility] ED Test Date: 2020-09-08 Test Time: 21:24:16 Pat Name: PALMIRA GAR Department: Room: Gender: F Instructor Warper: DELFINO : 1950 Requested By: Osamn Orlando Order Number: [id number] MD: Jamshid Villaseñor Measurements Intervals [place] Rate: 88 P: 43 ME: 141 QRS: 3 QRSD: 104 T: 88 QT: 389 QTc: 471 Interpretive Statements Sinus rhythm Abnormal R-wave progression, late transition Borderline T abnormalities, lateral leads Compared to ECG 07/22/2020 17:11:22 T-wave abnormality now present Ventricular premature complex(es) no longer present Prolonged QT interval no longer present Electronically Signed On 09-09-2020 7:16:09 CDT by Jamshid Villaseñor [email or web address] <ELECTRONICALLY SIGNED> By: Jamshid Villaseñor MD, [facility] 09/09/20715 23 23 Jamshid Villaseñor MD, [facility] /EPI
== END 2020-09-09 01:34 | disposition home or self-care (01) ==
LOC: ER 21:18
PROVIDERS: Nurse Practitioner
DX: E83.42 Hypomagnesemia (principal); R25.2 Cramp and spasm; K21.9 Gastro-esophageal reflux disease without esophagitis; M79.7 Fibromyalgia; E78.00 Pure hypercholesterolemia, unspecified; E11.9 Type 2 diabetes mellitus without complications; F32.9 Major depressive disorder, single episode, unspecified; F41.9 Anxiety disorder, unspecified; I48.91 Unspecified atrial fibrillation; Z90.710 Acquired absence of both cervix and uterus; Z85.3 Personal history of malignant neoplasm of breast; Z79.891 Long term (current) use of opiate analgesic; Z79.899 Other long term (current) drug therapy; Z79.82 Long term (current) use of aspirin; Z79.84 Long term (current) use of oral hypoglycemic drugs; Z88.1 Allergy status to other antibiotic agents; Z88.6 Allergy status to analgesic agent; Z91.041 Radiographic dye allergy status; Z88.5 Allergy status to narcotic agent; Z87.891 Personal history of nicotine dependence

== ENCOUNTER 2020-11-04 09:34 | Inpatient (IN) | payer OTHER ==
[~2020-11-04] VITALS: Ht 162.6 cm; Wt 105.7 kg
[~2020-11-04 09:34] MED LIST changes: +MAGNESIUM400 MG PO
[2020-11-04 09:35] VITALS: BP 107/88
[2020-11-04] MEDS ORDERED: MAGNESIUM400 M1 PO (10:02)
[2020-11-04] MEDS ORDERED: ELIQUIS5 MG PO (10:04)
[2020-11-04] MEDS ORDERED: METOPROLOL SUCC50 MG PO (10:04)
[2020-11-04 10:59] LABS: ALBUMIN 3.3 g/dL (3.4-5.0); CREATININE 0.8 mg/dL (0.6-1.0); POTASSIUM 3.8 mmol/L (3.5-5.1); TOTAL BILIRUBIN 0.4 mg/dL (0.2-1.0); TOTAL PROTEIN 7.1 g/dL (6.4-8.2)
[2020-11-04 11:01] LABS: CALCIUM 5.3 mg/dL (8.5-10.1)
[2020-11-04 12:14] VITALS: BP 137/74
[2020-11-04 12:35] VITALS: BP 128/67
--- NOTE | 2020-11-04 16:15 | NUR ---
Pt arrived to floor from emergency room per cart in stable condition. Admission hx, assessment and care plan completed.Pt c/o tingling of feet and face related to low calcium.Pt sister here to visit.Updates given.No further c/o received. Will continue to monitor.
[2020-11-04 19:28] LABS: POTASSIUM 3.6 mmol/L (3.5-5.1)
[2020-11-04 19:36] LABS: CALCIUM 5.5 mg/dL (8.5-10.1)
[2020-11-04 19:53] VITALS: BP 134/76
--- NOTE | 2020-11-05 03:22 | NUR ---
ASSUMED CARE THIS EVENING. PT IS ALERT AND ORIENTED X4 WITH SISTER AT BEDSIDE. SISTER BROUGHT ADVANCE DIRECTIVE WHICH WAS PLACED IN PT'S CHART. PT'S CA2+ WAS 5.5. NOC AIRPORT SECURITY SCREENER WAS INFORMED AN ORDER FOR TUMS AND BOLUS CA2+ WAS PLACED. PT TOLERATED INFUSION WELL. VS ARE WITHIN NORMAL RANGE AND MEDS WERE GIVEN PER EMAR ORDERS. PT DID NOT VERBALIZE ANY CONCERNS. PT TOLERATING RA. FALL PRECAUTIONS IN PLACE. WILL CONTINUE TO MONITOR.
[2020-11-05 04:44] LABS: HEMATOCRIT 34.7 % (37.0-47.0); HEMOGLOBIN 11.5 gm/dL (12.0-15.0); MCHC 33.2 g/dL (28.0-37.0); MCV 87.2 fL (80.0-100.0); RBC 3.98 mil/uL (4.20-5.00); RDW 14.7 % (10.5-14.5); WBC 6.8 thou/uL (4.0-11.0)
[2020-11-05 05:41] LABS: CALCIUM 6.7 mg/dL (8.5-10.1); CREATININE 0.8 mg/dL (0.6-1.0); POTASSIUM 4.1 mmol/L (3.5-5.1)
--- NOTE | 2020-11-05 10:07 | NUR ---
received orders for OT eval and treat. spoke with pt. who states she declines a formal evaluation, has been getting up independently during admission and has no concerns for safety and independence at home. OT will sign off. also noted, pt. requesting a Speech consultation to assess her cognition. RN aware.
--- NOTE | 2020-11-05 10:25 | NUR ---
ORDERS RECEIVED FOR EVAL AND TREAT. SPOKE WITH Pt WHO WANTS TO BE CLEARED TO GET UP ON HER OWN WITH HER ROLLATOR THAT IS BEING BROUGHT TO THE HOSPITAL. OBSERVERED HER STAND AND AMBULATE IN HER ROOM WITH THE FWW WITHOUT DIFFICULTY. Pt STATES SHE IS AT HER BASELINE AND FEELS STEADY ON HER FEET. Pt DECLINING A FORMAL P.T. EVAL BUT APPEARS TO BE SAFE FOR HOME WELL SAFE UP AD GLORIA WITH ROLLER WALKER.
[2020-11-05 11:24] VITALS: BP 127/70
[2020-11-05 11:34] LABS: MAGNESIUM 1.7 mg/dL (1.8-2.4)
[2020-11-05 12:06] LABS: CALCIUM 6.4 mg/dL (8.5-10.1); CREATININE 0.8 mg/dL (0.6-1.0); PHOSPHORUS 6.1 mg/dL (2.6-4.7)
--- NOTE | 2020-11-05 14:15 | NUR ---
A/O X 4. ROOM AIR. AD GLORIA. RIGHT HAND IV INFILTRATRED, IV TEAM PAGED. AFIB ON TELE. HS ACCU CHECKS. HER SISTER IS AT BEDSIDE. NO PAIN NOTED.
--- NOTE | 2020-11-05 14:31 | NUR ---
PT ADMITTED RELATED TO HYPOCALCEMIA. CM REVIEWED CHART AND SPOKE WITH CARE TEAM. CM MET WITH PT AT BEDSIDE THIS DAY. PT APPEARED TO BE A&O X4. CM ROLE INTRODUCED. PT INDICATED SHE RESIDES IN A HOUSE WITH HER SISTER WITH NO STEPS TO ENTER AND 11 TO THE BASEMENT WHERE SHE STAYS. PT INDICATED SHE HAS A FWW FOR HOME USE BUT USUALLY ONLY USED OUTSIDE OF THE HOME. 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 PT INDICATED SHE IS ON A MEDICAID SPEND DOWN. 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 CM INDICATED CM CAN PROVIDE PHONE NUMBER BUT THAT CM IS NOT SURE IF SHE CAN HAVE SERVICE ON A SPEND DOWN. PT INTERESTED IN HH UPON DC. SHE INDICATED NO PREFERANCE REFERRAL SENT TO [facility] FOR REVIEW FOR POSSIBLE ADMISSION. ANTICIPATE POSSIBLE DC TOMORROW. FAX ORDERS TO [facility] .
[2020-11-05 16:18] VITALS: BP 153/79
--- NOTE | 2020-11-05 17:00 | NUR ---
PT AND SISTER INDICATED THAT THEY WERE INTERESTED IN TRANSFER TO [facility] ([facility]) FOR ENDOCHRONOLOGY. CM INITIATED TRANSFER AND THEY INDICATED THAT THEY ARE CLOSED TO TELE TRANSFERS AND DON'T ANTICIAPTE ANY BEDS THIS DAY. IF SHE IS STILL HERE AND NEEDING TRANSPORT TOMORROW FAX TO CALL . IF TO DC HOME TOMORROW FAX ORDERS TO [facility] P: F: .
[2020-11-05 19:17] VITALS: BP 129/62
--- NOTE | 2020-11-06 03:03 | NUR ---
ASSUMED PT CARE THIS PM. PT IS ALERT AND ORIENTED x4. PT IS PLEASANT AND COOPERATIVE. PT IS UP AD GLORIA TO THE BR AFTER BEING CLEARED BY PT. VS ARE WITHIN NORMAL RANGE AND MEDS WERE GIVEN PER EMAR ORDER. PT TOLERATING RA. FALL PRECAUTIONS IN PLACE. WILL CONTINUE TO MONITOR.
[2020-11-06 06:30] LABS: HEMATOCRIT 36.1 % (37.0-47.0); HEMOGLOBIN 11.9 gm/dL (12.0-15.0); MCH 28.9 pg (26.0-34.0); MCHC 33.1 g/dL (28.0-37.0); MCV 87.3 fL (80.0-100.0); RBC 4.14 mil/uL (4.20-5.00); RDW 14.5 % (10.5-14.5); WBC 7.1 thou/uL (4.0-11.0)
[2020-11-06 06:40] LABS: CALCIUM 7.4 mg/dL (8.5-10.1); CREATININE 0.8 mg/dL (0.6-1.0); POTASSIUM 3.4 mmol/L (3.5-5.1)
[2020-11-06 07:16] VITALS: BP 145/80
--- NOTE | 2020-11-06 14:11 | NUR ---
ASSUMED CARE OF PT AT 0700. VITALS STABLE WITH NO COMPLAINTS, AMBULATES AD GLORIA IN ROOM WITH NO ISSUES. ONLY CONCERN TODAY IS DISCHARGE. CALCIUM PO GIVEN IN AND AND ONE BAG GIVEN PRIOR TO MD PUTTING IN DISCHARGE. WILL BE PICKED UP BY FAMILY SOON, DISCHARGIN HOME WITH SELF-MONITORING OF SYMPTOMS.
[2020-11-06 14:13] VITALS: BP 145/80
== END 2020-11-06 15:13 | disposition home or self-care (01) | DRG 644 ==
LOC: ER 09:34 → EROBS 12:12 → 4W 12:12
PROVIDERS: Emergency Medicine; ADMIT Hospitalist; ATTEND Hospitalist
DX: E89.0 Postprocedural hypothyroidism (principal); Z68.41 Body mass index [BMI] 40.0-44.9, adult; E83.51 Hypocalcemia; Z90.89 Acquired absence of other organs; I10 Essential (primary) hypertension; I48.91 Unspecified atrial fibrillation; E78.5 Hyperlipidemia, unspecified; F41.9 Anxiety disorder, unspecified; F43.10 Post-traumatic stress disorder, unspecified; Z88.8 Allergy status to other drugs, medicaments and biological substances; Z91.048 Other nonmedicinal substance allergy status; E11.40 Type 2 diabetes mellitus with diabetic neuropathy, unspecified; Z79.4 Long term (current) use of insulin; G51.0 Bell's palsy; K21.9 Gastro-esophageal reflux disease without esophagitis; F32.9 Major depressive disorder, single episode, unspecified; E66.01 Morbid (severe) obesity due to excess calories
CPT/HCPCS: 10045

== ENCOUNTER 2020-11-13 14:19 | Inpatient (IN) | payer OTHER ==
[~2020-11-13] VITALS: Ht 162.6 cm; Wt 104.8 kg
[~2020-11-13 14:19] MED LIST changes: +ELIQUIS5 MG PO; +MAGNESIUM400 M1 PO
[2020-11-13 14:21] VITALS: BP 161/89
[2020-11-13 14:47] LABS: ABSOLUTE NEUTROPHILS 6.5 thou/uL (1.4-8.2); BASOPHILS 0.9 % (0.0-2.0); EOSINOPHILS 1.4 % (0.0-3.0); HEMOGLOBIN 13.4 gm/dL (12.0-15.0); LYMPHOCYTES 21.6 % (24.0-44.0); MCH 28.6 pg (26.0-34.0); MCHC 32.7 g/dL (28.0-37.0); MCV 87.6 fL (80.0-100.0); MONOCYTES 6.2 % (1.0-8.0); PLATELET COUNT 466 thou/uL (150-400); POLYS 69.9 % (36.0-66.0); RBC 4.68 mil/uL (4.20-5.00); RDW 14.6 % (10.5-14.5); WBC 9.3 thou/uL (4.0-11.0)
[2020-11-13 14:54] LABS: CALCIUM 8.9 mg/dL (8.5-10.1); CREATININE 1.1 mg/dL (0.6-1.0); POTASSIUM 3.8 mmol/L (3.5-5.1)
[2020-11-13 15:01] LABS: APTT 33.4 Seconds (24.5-32.8); D-DIMER 0.26 ug/mLFEU (0.19-0.50); INR 0.98; PROTIME 10.7 Seconds (10.5-12.1)
[2020-11-13 15:04] LABS: ALBUMIN 3.5 g/dL (3.4-5.0); TOTAL BILIRUBIN 0.5 mg/dL (0.2-1.0)
[2020-11-13] MEDS ORDERED: LEVOTHYROXINE137 MC1 PO (15:20)
[2020-11-13 16:21] VITALS: BP 133/85
[2020-11-13 16:38] VITALS: BP 126/70
--- NOTE | 2020-11-13 18:23 | NUR ---
PT TO THE UNIT FROM THE ER. ORIENTED TO ROOM AND BEDSPACE. ASSESSMEENT CHARTED. SUSAN DIET AND FLUIDS. PT USED WALKER TO AMBULATE - HAS HER WON WALKER WITH HER THAT IS PINK IN COLOR. SISTER TO TAKE VALUABLES HOME WITH HER. PT SR IN THE 80'S. NO CO'S OF CHEST PAIN AT THE PRESENT TIME. SISTER AT THE BEDSIDE.
[2020-11-13 19:53] VITALS: BP 122/65
[2020-11-13 20:00] VITALS: BP 122/65
[2020-11-14 03:49] VITALS: BP 123/71
[2020-11-14 05:22] LABS: CALCIUM 8.2 mg/dL (8.5-10.1); POTASSIUM 3.2 mmol/L (3.5-5.1)
[2020-11-14 05:24] LABS: HEMATOCRIT 35.8 % (37.0-47.0); HEMOGLOBIN 11.8 gm/dL (12.0-15.0); MCH 28.6 pg (26.0-34.0); MCHC 32.9 g/dL (28.0-37.0); RBC 4.11 mil/uL (4.20-5.00); RDW 14.7 % (10.5-14.5); WBC 8.1 thou/uL (4.0-11.0)
[2020-11-14 08:00] VITALS: BP 108/65
--- NOTE | 2020-11-14 08:36 | NUR ---
Pt had an episode of a-fib with heart rate 140-160s, pt stated should could feel that she was in a-fib but not other symptoms voiced. EKG showed a-fib with prolonged QT, blood pressure 123/77. Brandi contacted and one time dose of metoprolol receieve with full relief within 5 minutes. Pt stated, "now I remember why I may be having this problem, I have not been taken my metoprolol for the last 5 days, I must have mistaken it for metformin". Will continue to monitor.
--- NOTE | 2020-11-14 09:26 | EKG ---
[place] [address] [facility] [place] [address] ELECTROCARDIOGRAM REPORT Name: PALMIRA GAR Room #: 218-P ADM IN M.R.#: [id number] Admission: 11/13/20 Attend Phys: David Khan MD Discharge: Date of : 54 Report #: [id number] [facility] ED Test Date: 2020-11-13 Test Time: 15:12:45 Pat Name: PALMIRA GAR Department: Room: 218 Gender: F Vertical Punch Operator: SARAHI : 1950 Requested By: Marquis Felix Order Number: [id number] MD: Bertin Henley Measurements Intervals [place] Rate: 103 P: 44 OK: 143 QRS: 21 QRSD: 91 T: 38 QT: 347 QTc: 454 Interpretive Statements Sinus tachycardia Nonspecific ST and T wave abnormality Compared to ECG 11/13/2020 14:26:40 No significant changes Electronically Signed On 11-14-2020 9:26:26 CDT by Bertin Henley [email or web address] <ELECTRONICALLY SIGNED> By: Bertin Henley MD, [facility] 11/14/20 0926 151 11 Bertin Henley MD, [facility] /EPI
--- NOTE | 2020-11-14 09:26 | EKG ---
[place] [address] [facility] [place] [address] ELECTROCARDIOGRAM REPORT Name: PALMIRA GAR Room #: 218-P ADM IN M.R.#: [id number] Admission: 11/13/20 Attend Phys: David Khan MD Discharge: Date of : 54 Report #: [id number] [facility] ED Test Date: 2020-11-13 Test Time: 14:26:40 Pat Name: PALMIRA GAR Department: Room: 218 Gender: F Install And Repair Technician: KINDRA : 1950 Requested By: Marquis Felix Order Number: [id number] MD: Bertin Henley Measurements Intervals [place] Rate: 109 P: 52 NM: 142 QRS: 7 QRSD: 91 T: 177 QT: 341 QTc: 460 Interpretive Statements Sinus tachycardia Nonspecific T abnormalities Compared to ECG 09/08/2020 21:24:16 Sinus rhythm no longer present T-wave abnormality still present Electronically Signed On 11-14-2020 9:25:53 CDT by Bertin Henley [email or web address] <ELECTRONICALLY SIGNED> By: Bertin Henley MD, [facility] 11/14/20 0925 1425 25 Bertin Henley MD, [facility] /EPI
[2020-11-14 12:20] VITALS: BP 151/79
[2020-11-14 15:36] VITALS: BP 120/72
[2020-11-14] MEDS ORDERED: CALCITRIOL0.5 MCG PO (16:22)
[2020-11-14 20:00] VITALS: BP 126/47
--- NOTE | 2020-11-14 20:24 | NUR ---
Emd shift note: Pt remained free of chest pain , stable, comfortable, afebrile. No concerning change on tele. Electolytes replaced, mood change notice. Pt got upset over misunderstanding of treatmt with a nurse. But remained calm afterwards. No other concerns
--- NOTE | 2020-11-15 02:17 | NUR ---
ASSESSED AT START OF SHIFT. PT DENEIS CHEST PAIN. EVENING MEDS GIVEN AND PT SUSAN IT WELL. UP TO THE BSC. CALL LIGHT AT REACH. NO FURTHER SIGNS OF DISCOMFORT. REPORT GIVEN TO OTHER RN TO CONT CARE.
[2020-11-15 04:43] LABS: CALCIUM 8.6 mg/dL (8.5-10.1); CREATININE 0.9 mg/dL (0.6-1.0); POTASSIUM 3.9 mmol/L (3.5-5.1)
[2020-11-15 04:50] VITALS: BP 135/74
[2020-11-15 07:00] VITALS: BP 148/79
--- NOTE | 2020-11-15 08:17 | NUR ---
SLEPT MOST OF SHIFT. UP TO BATHROOM WITH WALKER AND STEADY GAIT. CONTINUE TO ASSES CLOSELY.
--- NOTE | 2020-11-15 10:24 | NUR ---
PT DECLINED THERAPY ASSESSMENT AT THIS TIME. PT INDICATES SHE IS TO BE D/C TODAY AND HAS BEEN GETTING UP WITH HER WALKER AND WALKING IN THE ROOM TO/FROM THE BATHROOM. PT DECLINED NEED FOR P.T. HOME SERVICES OR DME. REQUEST NEW CONSULT IF PT DEMONSTRATES A DECLINE IN FUNCTIONAL MOBILITY STATUS.
[2020-11-15 12:00] VITALS: BP 137/74
--- NOTE | 2020-11-15 12:52 | 2DMMODE ---
[facility] [place] [address] 2 D/M-MODE ECHOCARDIOGRAM Name: PALMIRA GAR Room #: 218-P ADM IN M.R.#: [id number] Admission: 11/13/20 Attend Phys: David Khan MD Discharge: Date of : 54 Report #: [id number] THIS REPORT FOR: cc: [place] Steven F. DO Lammoglia, Francisco J. MD ~ APPROVED REPORT Study performed: 11/15/2020 11:09:28 EXAM: Comprehensive 2D, Doppler, and color-flow Echocardiogram Patient Location: Bedside Room #: 218 Status: routine BSA: 2.09 HR: 72 bpm BP: 148/78 mmHg Rhythm: NSR Other Information Study Quality: Adequate Indications Diabetes Atrial Fibrillation Chest Pain 2D Dimensions IVC: 23.00 mm Aortic Valve AoV Peak Haresh.: 1.60 m/s AO Peak Gr.: 10.28 mmHg LVOT Max P.86 mmHg LVOT Max V: 0.98 m/s Mitral Valve E/A Ratio: 0.8 MV Decel. Time: 288.47 ms MV E Max Haresh.: 0.67 m/s MV A Haresh.: 0.86 m/s MV PHT: 83.66 ms IVRT: 119.95 ms Pulmonary Valve [facility] [address] [place] [address] 2 D/M-MODE ECHOCARDIOGRAM Name: PALMIRA GAR Room #: 218-P [facility] IN M.R.#: [id number] Admission: 11/13/20 Attend Phys: David Khan MD Discharge: Date of : 54 Report #: [id number] PV Peak Haresh.: 0.99 m/s PV Peak Gr.: 3.95 mmHg Pulmonary Vein P Vein S: 0.39 m/s P Vein A: 0.23 m/s P Vein D: 0.29 m/s P Vein A Dur.: 106.1 msec P Vein S/D Ratio: 1.34 Tricuspid Valve TR Peak Haresh.: 2.11 m/s TR Peak Gr.: 17.74 mmHg PA Pressure: 28.00 mmHg Left Ventricle The left ventricle is normal size. There is normal LV segmental wall motion. There is normal left ventricular wall thickness. Left ventricular systolic function is normal. The left ventricular ejection fraction is within the normal range. LVEF is 55-60%. Grade I - abnormal relaxation pattern. Right Ventricle The right ventricle is normal size. The right ventricular systolic function is normal. Atria The left atrium size is normal. The right atrium size is normal. Aortic Valve The aortic valve is normal in structure. No aortic regurgitation is present. There is no aortic valvular stenosis. Mitral Valve The mitral valve is normal in structure. There is no mitral valve regurgitation noted. No evidence of mitral valve stenosis. Tricuspid Valve The tricuspid valve is normal in structure. There is trace tricuspid regurgitation. Estimated PAP 28 mmHg. There is no pulmonary hypertension. Pulmonic Valve The pulmonary valve is normal in structure. There is no pulmonic valvular regurgitation. Great Vessels The aortic root is normal in size. IVC is dilated and collapses [facility] [address] [place] [address] 2 D/M-MODE ECHOCARDIOGRAM Name: PALMIRA GAR Room #: 218-P ADM IN M.R.#: [id number] Admission: 11/13/20 Attend Phys: David Khan MD Discharge: Date of : 54 Report #: [id number] <50% with inspiration. Pericardium Trace pericardial effusion. <Conclusion> The left ventricle is normal size. LVEF is 55-60%. The right ventricle is normal size. The left atrium size is normal. The aortic valve is normal in structure. The mitral valve is normal in structure. The tricuspid valve is normal in structure. There is trace tricuspid regurgitation. Estimated PAP 28 mmHg. There is no pulmonary hypertension. The pulmonary valve is normal in structure. The aortic root is normal in size. Trace pericardial effusion. <ELECTRONICALLY SIGNED> By: Benjamin Gallo MD 11/15/20 1252 1252 1252 Benjamin Gallo MD /INF
[2020-11-15] MEDS ORDERED: TAMBOCOR 100 M100 M1 PO (15:46)
[2020-11-15 16:09] VITALS: BP 137/74
== END 2020-11-15 17:12 | disposition home or self-care (01) | DRG 309 ==
LOC: ER 14:19 → EROBS 16:24 → 2N 16:24
PROVIDERS: Emergency Medicine; ADMIT Hospitalist; ATTEND Hospitalist
DX: I48.19 Other persistent atrial fibrillation (principal); N17.9 Acute kidney failure, unspecified; D68.69 Other thrombophilia; I47.1 Supraventricular tachycardia; K21.9 Gastro-esophageal reflux disease without esophagitis; G51.0 Bell's palsy; M79.7 Fibromyalgia; E78.00 Pure hypercholesterolemia, unspecified; R77.8 Other specified abnormalities of plasma proteins; E11.40 Type 2 diabetes mellitus with diabetic neuropathy, unspecified; E78.5 Hyperlipidemia, unspecified; F43.10 Post-traumatic stress disorder, unspecified; F32.9 Major depressive disorder, single episode, unspecified; F41.9 Anxiety disorder, unspecified; Z20.822 Contact with and (suspected) exposure to COVID-19; Z79.01 Long term (current) use of anticoagulants; Z23 Encounter for immunization; Z79.899 Other long term (current) drug therapy; Z86.19 Personal history of other infectious and parasitic diseases; Z85.3 Personal history of malignant neoplasm of breast; Z90.13 Acquired absence of bilateral breasts and nipples; Z90.49 Acquired absence of other specified parts of digestive tract; Z90.710 Acquired absence of both cervix and uterus; Z87.01 Personal history of pneumonia (recurrent); Z86.018 Personal history of other benign neoplasm; Z88.5 Allergy status to narcotic agent; Z88.8 Allergy status to other drugs, medicaments and biological substances; Z88.1 Allergy status to other antibiotic agents; Z91.041 Radiographic dye allergy status; Z87.891 Personal history of nicotine dependence; Z79.82 Long term (current) use of aspirin
CPT/HCPCS: 10081

== ENCOUNTER → 2020-12-03 | Outpatient (CLI) | payer OTHER ==
[~2020-12-03] MED LIST changes: +CALCITRIOL0.5 MCG PO; +LEVOTHYROXINE137 MC1 PO; +TAMBOCOR 100 M100 M1 PO
== END ==
LOC: SJCVCIMAG 09:09
PROVIDERS: ATTEND Internal Medicine
DX: I48.91 Unspecified atrial fibrillation (principal); R00.2 Palpitations